=== PATIENT | female | born 1955 | race African-American/Black ===

== ENCOUNTER 2018-12-02 09:32 | Observation (INO) ==
[2018-12-02 10:54] LABS: Basophils % 0.3 % (0.0-0.8); Eosinophils % 0.3 % (0.00-10.9); Hematocrit 40.2 VOL% (35.7-47.0); Hemoglobin 12.7 GM/DL (12.0-16.0); Immature Granulocytes % 1.9 %; Immature Granulocytes Absolute 0.07 #; Lymphocytes # 0.6 10*3/uL (1.4-4.0); Lymphocytes % 16.4 % (21.3-54.2); Mean Corpuscular HGB Conc 31.6 GM/DL (32-36); Mean Platelet Volume 10.6 FL (9.6-12.0); Monocytes % 16.1 % (1.7-12.7); Platelet Count 152 T/CUMM (130-400); Red Blood Count 4.23 MC/CUMM (3.8-5.5); Red Cell Distribution Width 11.6 % (9.3-17.3); White Blood Count 3.7 T/CUMM (4-12)
[2018-12-02 11:02] LABS: Apearance,Urine CLEAR (Clear); Bilirubin,Urine Negative (Negative); Blood, Urine Negative (Negative); Glucose,Urine (UA) Negative (Negative); Hyaline Casts,Urine 7 /LPF (0-3); Ketones,Urine Negative (Negative); Mucus,Urine Occasional /LPF (Occasional); Nitrite,Urine Negative (Negative); Protein,Urine 30 MG/DL; RBC,Urine 1 /HPF (0-4); Urine Color Amber (Yellow); Urine Specific Gravity 1.019 (1.001-1.035); Urine Urobilinogen < 2.0 EU/DL (0.2-1.0); WBC,Urine <1 /HPF (0-6)
[2018-12-02 11:04] LABS: PT Patient Result 11.2 SECS; Partial Thromboplastin Time 30.8 SECS (0-40)
[2018-12-02 11:12] LABS: Alanine Aminotransferase 18 U/L (13-56); Albumin 3.2 G/DL (3.4-5.0); Alkaline Phosphatase 95 U/L (45-117); Aspartate Amino Transferase 40 U/L (0-37); Blood Urea Nitrogen 21 MG/DL (7-18); Calcium 10.2 MG/DL (8.5-10.1); Glucose 112 MG/DL (74-106); Osmolality,Calculated 276.8 MOS/KG (273-304); Total Protein 6.8 G/DL (6.4-8.3)
[2018-12-02 11:17] LABS: Lymphocytes 19 % (20-55); Myelocytes 1 %; Segmented Neutrophils 64 % (50-85); Total Cells Counted 100
[2018-12-02 11:18] LABS: Atypical Lymphocytes Few; Ovalocytes Slight; Tear Drop Cells Slight
[2018-12-02 11:19] LABS: Microcytosis Slight
[2018-12-02 11:21] LABS: Platelet Estimate Adequate
[2018-12-02 11:36] LABS: Barbiturates Screen,Urine Negative (Negative); Benzodiazepines Screen,Urine Negative (Negative); Cannabinoid Screen,Urine Negative (Negative); Opiate Screen,Urine Negative (Negative); Phencyclidine Screen,Urine Negative (Negative)
[2018-12-02] MEDS ORDERED: DEXTROSE 10% 250 ML BAG IV PRN (12:19)
[2018-12-02] MEDS ORDERED: ONDANSETRON 4 MG/2 ML VIAL IV PRN (12:19)
[2018-12-02] MEDS ORDERED: GLUCAGON 1 MG VIAL IM PRN (12:19)
[2018-12-02] MEDS: SODIUM CHLORIDE 0.9% 1,000 ML IV SCH ×2 (13:10→23:14)
[2018-12-02] MEDS: INSULIN LISPRO 100 UNIT/ML SUBCUT SCH ×2 (16:47→20:16)
[2018-12-02] MEDS: TACROLIMUS 0.5 MG CAPSULE PO SCH (20:16)
[2018-12-02] MEDS: METOPROLOL TARTRATE 100 MG TABLET PO SCH (20:16)
[2018-12-02] MEDS ORDERED: ATORVASTATIN 10 MG TABLET PO SCH (21:00)
[2018-12-02] MEDS ORDERED: ENOXAPARIN 30 MG/0.3 ML SYRINGE SUBCUT SCH (21:00)
[2018-12-02] MEDS ORDERED: clonazePAM 0.5 MG TABLET PO SCH (21:00)
[2018-12-03 04:50] LABS: Eosinophils % 0.4 % (0.00-10.9); Hematocrit 33.2 VOL% (35.7-47.0); Hemoglobin 10.2 GM/DL (12.0-16.0); Immature Granulocytes % 2.2 %; Immature Granulocytes Absolute 0.05 #; Lymphocytes # 0.5 10*3/uL (1.4-4.0); Mean Corpuscular HGB Conc 30.7 GM/DL (32-36); Mean Corpuscular Volume 95.4 FL (87-102); Mean Platelet Volume 10.1 FL (9.6-12.0); Neutrophils % 55.4 % (38.7-73.9); Platelet Count 127 T/CUMM (130-400); Red Blood Count 3.48 MC/CUMM (3.8-5.5); Red Cell Distribution Width 11.6 % (9.3-17.3); White Blood Count 2.3 T/CUMM (4-12)
[2018-12-03 05:18] LABS: Albumin 2.4 G/DL (3.4-5.0); Calcium 9.3 MG/DL (8.5-10.1); Osmolality,Calculated 281.3 MOS/KG (273-304); Thyroid Stimulating Hormone 2.44 uIU/ml (0.358-3.74); Total Protein 5.5 G/DL (6.4-8.3)
[2018-12-03 06:42] LABS: Lymphocytes 24 % (20-55); Segmented Neutrophils 58 % (50-85); Total Cells Counted 100
[2018-12-03 06:43] LABS: Hypochromasia 1+; Platelet Estimate Normal; Reactive Lymphocytes 1+
[2018-12-03 06:44] LABS: Ovalocytes 1+
[2018-12-03] MEDS: INSULIN LISPRO 100 UNIT/ML SUBCUT SCH ×2 (08:58→12:36)
[2018-12-03] MEDS ORDERED: CHOLECALCIFEROL 1,000 UNIT TABLET PO SCH (09:00)
[2018-12-03] MEDS ORDERED: LOSARTAN 50 MG TABLET PO SCH (09:00)
[2018-12-03] MEDS ORDERED: PANTOPRAZOLE 40 MG TABLET PO SCH (09:00)
[2018-12-03] MEDS ORDERED: predniSONE 20 MG TABLET PO SCH (09:00)
[2018-12-03] MEDS ORDERED: MYCOPHENOLATE MOFETIL 250 MG CAPSULE PO SCH (09:00)
[2018-12-03] MEDS ORDERED: MAGNESIUM OXIDE 400 MG TABLET PO SCH (09:00)
[2018-12-03] MEDS: SODIUM CHLORIDE 0.9% 1,000 ML IV SCH (09:10)
[2018-12-03] MEDS: TACROLIMUS 0.5 MG CAPSULE PO SCH (09:10)
[2018-12-03] MEDS: METOPROLOL TARTRATE 100 MG TABLET PO SCH (09:10)
[2018-12-03 13:30] VITALS: BP 139/74
== END 2018-12-03 12:42 | disposition home or self-care (01) ==
LOC: N.ED 09:32 → N.EDINP 09:32 → SUATTDRO 12:19 → N.4E 12:42
PROVIDERS: ADMIT Internal Medicine Nephrology; ATTEND Hospitalist

== ENCOUNTER 2020-04-18 21:20 | Inpatient (IN) ==
[2020-04-18] MEDS ORDERED: ACETAMINOPHEN 500 MG TABLET PO STA ×2 (22:20→22:44)
[2020-04-18] MEDS ORDERED: SODIUM CHLORIDE 0.9% 500 ML IV STA (22:20)
[2020-04-18] MEDS ORDERED: cefTRIAXone 1,000 MG in SODIUM CHLORIDE 0.9% 100 ML IV STA (22:20)
[2020-04-18] MEDS ORDERED: cefTRIAXone 1,000 MG VIAL ONE (22:27)
[2020-04-18 22:28] LABS: Basophils % 0.1 % (0.0-0.8); Eosinophils # 0.6 10*3/uL (0.0-0.87); Eosinophils % 6.1 % (0.00-10.9); Hematocrit 42.8 VOL% (35.7-47.0); Hemoglobin 14.2 GM/DL (12.0-16.0); Immature Granulocytes % 2.2 %; Lymphocytes # 0.4 10*3/uL (1.4-4.0); Lymphocytes % 4.7 % (21.3-54.2); Mean Corpuscular HGB Conc 33.2 GM/DL (32-36); Mean Corpuscular Volume 92.2 FL (87-102); Mean Platelet Volume 10.9 FL (9.6-12.0); Neutrophils % 60.9 % (38.7-73.9); Platelet Count 106 T/CUMM (130-400); Red Blood Count 4.64 MC/CUMM (3.8-5.5); Red Cell Distribution Width 11.6 % (9.3-17.3); White Blood Count 9.2 T/CUMM (4-12)
[2020-04-18 22:41] LABS: Albumin 2.9 G/DL (3.4-5.0); Bilirubin,Total 1.4 MG/DL (0.2-1.0); Calcium 8.9 MG/DL (8.5-10.1); Osmolality,Calculated 270.5 MOS/KG (273-304); Total Protein 5.9 G/DL (6.4-8.3)
[2020-04-18 22:54] LABS: Lymphocytes 5 % (20-55); Platelet Estimate Adequate; Segmented Neutrophils 67 % (50-85); Total Cells Counted 100
[2020-04-18] MEDS ORDERED: MAGNESIUM SULF RIDER 2 GM in PREMIX 1 EACH IV STA (23:10)
[2020-04-18 23:55] LABS: Bilirubin,Urine Negative (Negative); Blood, Urine Small mg/dL (Negative); Glucose,Urine (UA) Negative (Negative); Hyaline Casts,Urine 1 /LPF (0-3); Ketones,Urine Negative (Negative); Nitrite,Urine Negative (Negative); Protein,Urine 100 MG/DL; RBC,Urine 7 /HPF (0-4); Squamous Epithelial Cell,Urine Few /HPF (0-10); Urine Appearance Slightly Hazy (Clear); Urine Color Yellow (Yellow); Urine Specific Gravity 1.012 (1.001-1.035); Urine Urobilinogen < 2.0 EU/DL (0.2-1.0); WBC,Urine 75 /HPF (0-6)
[2020-04-18] MEDS ORDERED: IBUPROFEN 400 MG TABLET ONE (23:57)
[2020-04-18] MEDS ORDERED: IBUPROFEN 400 MG TABLET PO STA (23:58)
[2020-04-19] MEDS ORDERED: cefTRIAXone 1,000 MG in SODIUM CHLORIDE 0.9% 100 ML IV STA (00:13)
[2020-04-19] MEDS ORDERED: cefTRIAXone 1,000 MG VIAL ONE (00:22)
[2020-04-19] MEDS ORDERED: MAGNESIUM SULF RIDER 4 GM in PREMIX 1 EACH IV PRN (01:41)
[2020-04-19] MEDS ORDERED: MAGNESIUM SULF RIDER 2 GM in PREMIX 1 EACH IV PRN (01:41)
[2020-04-19] MEDS ORDERED: DEXTROSE 50% 25 GM/50 ML VIAL IV PRN (01:42)
[2020-04-19] MEDS ORDERED: GLUCAGON 1 MG VIAL IM PRN (01:42)
[2020-04-19] MEDS ORDERED: ONDANSETRON 4 MG/2 ML VIAL IV PRN (01:42)
[2020-04-19] MEDS: SODIUM CHLORIDE 0.9% 1,000 ML IV SCH ×3 (02:47→21:10)
[2020-04-19 03:50] LABS: Basophils % 0.1 % (0.0-0.8); Hematocrit 36.3 VOL% (35.7-47.0); Hemoglobin 11.8 GM/DL (12.0-16.0); Immature Granulocytes % 1.1 %; Immature Granulocytes Absolute 0.09 #; Lymphocytes # 0.3 10*3/uL (1.4-4.0); Lymphocytes % 3.2 % (21.3-54.2); Mean Corpuscular HGB Conc 32.5 GM/DL (32-36); Mean Corpuscular Volume 93.3 FL (87-102); Mean Platelet Volume 10.3 FL (9.6-12.0); Monocytes % 21.8 % (1.7-12.7); Neutrophils % 73.8 % (38.7-73.9); Platelet Count 89 T/CUMM (130-400); Red Blood Count 3.89 MC/CUMM (3.8-5.5); Red Cell Distribution Width 11.5 % (9.3-17.3); White Blood Count 8.6 T/CUMM (4-12)
[2020-04-19 04:23] LABS: Albumin 2.3 G/DL (3.4-5.0); Bilirubin,Total 0.8 MG/DL (0.2-1.0); Calcium 8.3 MG/DL (8.5-10.1); Osmolality,Calculated 270.2 MOS/KG (273-304); Total Protein 5.3 G/DL (6.4-8.3)
[2020-04-19 04:53] LABS: Band Neutrophils 1 % (0-10); Lymphocytes 4 % (20-55); Ovalocytes Slight; Platelet Estimate Decreased; Segmented Neutrophils 83 % (50-85); Total Cells Counted 100
[2020-04-19] MEDS: ENOXAPARIN 40 MG/0.4 ML SYRINGE SUBCUT SCH (08:55)
[2020-04-19] MEDS: INSULIN LISPRO 100 UNIT/ML SUBCUT SCH ×4 (08:56→21:09)
[2020-04-19] MEDS: ACETAMINOPHEN 325 MG TABLET PO PRN ×3 (09:40→19:45)
[2020-04-19] MEDS: POTASSIUM CHLORIDE 20 MEQ TABLET PO PRN ×3 (13:17→17:12)
[2020-04-19] MEDS: predniSONE 10 MG TABLET PO SCH (15:50)
[2020-04-19] MEDS: MYCOPHENOLATE MOFETIL 250 MG CAPSULE PO SCH ×2 (15:50→21:10)
[2020-04-19] MEDS ORDERED: IBUPROFEN 400 MG TABLET PO PRN (16:43)
[2020-04-19] MEDS: cefTRIAXone 2,000 MG in SYRINGE 1 EACH IV SCH (21:09)
[2020-04-20 05:56] LABS: Basophils % 0.2 % (0.0-0.8); Hematocrit 36.1 VOL% (35.7-47.0); Hemoglobin 11.9 GM/DL (12.0-16.0); Immature Granulocytes % 7.2 %; Lymphocytes # 0.3 10*3/uL (1.4-4.0); Lymphocytes % 3.1 % (21.3-54.2); Mean Corpuscular Volume 93.3 FL (87-102); Mean Platelet Volume 11.4 FL (9.6-12.0); Monocytes % 13.5 % (1.7-12.7); Red Blood Count 3.87 MC/CUMM (3.8-5.5); Red Cell Distribution Width 11.8 % (9.3-17.3); White Blood Count 8.3 T/CUMM (4-12)
[2020-04-20 05:58] LABS: Platelet Count 67 T/CUMM (130-400)
[2020-04-20 06:16] LABS: Calcium 7.8 MG/DL (8.5-10.1)
[2020-04-20 06:22] LABS: Lymphocytes 1 % (20-55); Metamyelocytes 2 %; Platelet Estimate Decreased; Segmented Neutrophils 88 % (50-85); Total Cells Counted 100
[2020-04-20 06:26] LABS: Albumin 1.4 G/DL (3.4-5.0); Bilirubin,Total 0.5 MG/DL (0.2-1.0); Calcium 7.2 MG/DL (8.5-10.1); Osmolality,Calculated 276.1 MOS/KG (273-304); Total Protein 4.4 G/DL (6.4-8.3)
[2020-04-20] MEDS: INSULIN LISPRO 100 UNIT/ML SUBCUT SCH ×4 (09:23→21:18)
[2020-04-20] MEDS: MYCOPHENOLATE MOFETIL 250 MG CAPSULE PO SCH ×2 (09:24→21:18)
[2020-04-20] MEDS: ENOXAPARIN 40 MG/0.4 ML SYRINGE SUBCUT SCH (09:24)
[2020-04-20] MEDS: predniSONE 10 MG TABLET PO SCH (09:24)
[2020-04-20] MEDS: SODIUM CHLORIDE 0.9% 1,000 ML IV SCH ×2 (09:24→17:02)
[2020-04-20] MEDS: ACETAMINOPHEN 325 MG TABLET PO PRN (09:25)
[2020-04-20] MEDS: NYSTATIN 500,000 UNIT/5 ML UDCUP SWISH/SWAL SCH ×2 (16:47→21:17)
[2020-04-20] MEDS: cefTRIAXone 2,000 MG in SYRINGE 1 EACH IV SCH (21:16)
[2020-04-20] MEDS: clonazePAM 0.5 MG TABLET PO SCH (21:17)
[2020-04-20] MEDS: TACROLIMUS 0.5 MG CAPSULE PO SCH (21:19)
[2020-04-21] MEDS: ACETAMINOPHEN 325 MG TABLET PO PRN ×2 (00:15→09:47)
[2020-04-21 09:33] LABS: Calcium 8.6 MG/DL (8.5-10.1); Osmolality,Calculated 281.5 MOS/KG (273-304)
[2020-04-21 10:29] LABS: Hematocrit 32.3 VOL% (35.7-47.0); Hemoglobin 10.6 GM/DL (12.0-16.0); Immature Granulocytes % 3.7 %; Immature Granulocytes Absolute 0.13 #; Lymphocytes # 0.4 10*3/uL (1.4-4.0); Lymphocytes % 10.5 % (21.3-54.2); Mean Corpuscular HGB Conc 32.8 GM/DL (32-36); Mean Corpuscular Volume 92.8 FL (87-102); Mean Platelet Volume 11.1 FL (9.6-12.0); Monocytes % 17.8 % (1.7-12.7); Red Blood Count 3.48 MC/CUMM (3.8-5.5); Red Cell Distribution Width 12.3 % (9.3-17.3); White Blood Count 3.5 T/CUMM (4-12)
[2020-04-21 10:32] LABS: Platelet Count 79 T/CUMM (130-400)
[2020-04-21] MEDS: NYSTATIN 500,000 UNIT/5 ML UDCUP SWISH/SWAL SCH ×4 (10:36→21:44)
[2020-04-21] MEDS: CHOLECALCIFEROL 1,000 UNIT TABLET PO SCH (10:37)
[2020-04-21] MEDS: TACROLIMUS 0.5 MG CAPSULE PO SCH ×2 (10:37→21:36)
[2020-04-21] MEDS: CETIRIZINE 10 MG TABLET PO SCH (10:38)
[2020-04-21] MEDS: RIVAROXABAN 10 MG TABLET PO SCH (10:38)
[2020-04-21] MEDS: ASPIRIN EC 81 MG TABLET PO SCH (10:38)
[2020-04-21] MEDS: MYCOPHENOLATE MOFETIL 250 MG CAPSULE PO SCH ×2 (10:39→21:35)
[2020-04-21] MEDS: INSULIN LISPRO 100 UNIT/ML SUBCUT SCH ×4 (10:39→21:36)
[2020-04-21] MEDS: predniSONE 10 MG TABLET PO SCH (10:39)
[2020-04-21 10:49] LABS: Hypochromasia 1+; Lymphocytes 8 % (20-55); Microcytosis Slight; Nucleated Red Blood Cells 1 (0-5); Ovalocytes Slight; Platelet Estimate Decreased; Segmented Neutrophils 82 % (50-85); Total Cells Counted 100
[2020-04-21 10:50] LABS: Burr Cells Slight
[2020-04-21 14:56] LABS: Ferritin 3251.5 ng/ml (8-252)
[2020-04-21 15:00] LABS: INR 1.2; PT Patient Result 13.1 SECS (9.8-11.9)
[2020-04-21] MEDS: METOPROLOL TARTRATE 100 MG TABLET PO SCH ×2 (15:09→21:35)
[2020-04-21] MEDS: SODIUM CHLORIDE 0.9% 1,000 ML IV SCH (15:10)
[2020-04-21 15:48] LABS: HIV Antigen/Antibody Result Nonreactive (Nonreactive)
[2020-04-21] MEDS: clonazePAM 0.5 MG TABLET PO SCH (21:35)
[2020-04-21] MEDS: LOSARTAN 50 MG TABLET PO SCH (21:36)
[2020-04-21] MEDS: cefTRIAXone 2,000 MG in SYRINGE 1 EACH IV SCH (21:43)
[2020-04-22] MEDS: ACETAMINOPHEN 325 MG TABLET PO PRN ×3 (03:41→23:36)
[2020-04-22 04:16] LABS: Eosinophils # 0.1 10*3/uL (0.0-0.87); Eosinophils % 4.6 % (0.00-10.9); Hematocrit 23.8 VOL% (35.7-47.0); Immature Granulocytes % 3.3 %; Immature Granulocytes Absolute 0.08 #; Lymphocytes # 0.4 10*3/uL (1.4-4.0); Lymphocytes % 15.4 % (21.3-54.2); Mean Corpuscular HGB Conc 30.3 GM/DL (32-36); Mean Corpuscular Volume 99.2 FL (87-102); Mean Platelet Volume 11.1 FL (9.6-12.0); Monocytes % 13.3 % (1.7-12.7); Neutrophils % 63.4 % (38.7-73.9); Red Cell Distribution Width 12.3 % (9.3-17.3)
[2020-04-22 04:29] LABS: Hemoglobin 7.2 GM/DL (12.0-16.0); Platelet Count 53 T/CUMM (130-400); White Blood Count 2.4 T/CUMM (4-12)
[2020-04-22 04:32] LABS: Calcium 6.1 MG/DL (8.5-10.1); Osmolality,Calculated 293.4 MOS/KG (273-304)
[2020-04-22 04:40] LABS: Band Neutrophils 1 % (0-10); Lymphocytes 17 % (20-55); Segmented Neutrophils 72 % (50-85); Total Cells Counted 100
[2020-04-22 04:41] LABS: Burr Cells Few; Hypochromasia 1+; Microcytosis Slight
[2020-04-22 04:42] LABS: Ovalocytes Slight; Platelet Estimate Decreased
[2020-04-22] MEDS: SODIUM CHLORIDE 0.9% 1,000 ML IV SCH (05:19)
[2020-04-22 07:45] LABS: Hematocrit 26.8 VOL% (35.7-47.0); Hemoglobin 8.6 GM/DL (12.0-16.0); Immature Granulocytes % 1.2 %; Immature Granulocytes Absolute 0.02 #; Lymphocytes # 0.3 10*3/uL (1.4-4.0); Mean Corpuscular HGB Conc 32.1 GM/DL (32-36); Mean Corpuscular Volume 94.7 FL (87-102); Mean Platelet Volume 11.1 FL (9.6-12.0); Monocytes % 14.2 % (1.7-12.7); Neutrophils % 68.6 % (38.7-73.9); Platelet Count 68 T/CUMM (130-400); Red Blood Count 2.83 MC/CUMM (3.8-5.5); Red Cell Distribution Width 12.4 % (9.3-17.3); White Blood Count 1.6 T/CUMM (4-12)
[2020-04-22] MEDS ORDERED: MAGNESIUM SULF RIDER 4 GM in PREMIX 1 EACH IV ONE (07:53)
[2020-04-22] MEDS: NYSTATIN 500,000 UNIT/5 ML UDCUP SWISH/SWAL SCH ×4 (08:25→22:00)
[2020-04-22] MEDS: TACROLIMUS 0.5 MG CAPSULE PO SCH ×2 (08:25→21:59)
[2020-04-22] MEDS: CHOLECALCIFEROL 1,000 UNIT TABLET PO SCH (08:26)
[2020-04-22] MEDS: METOPROLOL TARTRATE 100 MG TABLET PO SCH ×2 (08:26→21:59)
[2020-04-22] MEDS: MYCOPHENOLATE MOFETIL 250 MG CAPSULE PO SCH ×2 (08:26→21:59)
[2020-04-22] MEDS: amLODIPine 10 MG TABLET PO SCH (08:26)
[2020-04-22] MEDS: RIVAROXABAN 10 MG TABLET PO SCH (08:26)
[2020-04-22] MEDS: CETIRIZINE 10 MG TABLET PO SCH (08:26)
[2020-04-22] MEDS: ASPIRIN EC 81 MG TABLET PO SCH (08:26)
[2020-04-22] MEDS: predniSONE 10 MG TABLET PO SCH (08:27)
[2020-04-22] MEDS: INSULIN LISPRO 100 UNIT/ML SUBCUT SCH ×4 (08:27→21:58)
[2020-04-22] MEDS: SODIUM BICARB IV SCH ×2 (11:50→23:27)
[2020-04-22] MEDS: POTASSIUM CHLORIDE IV SCH ×2 (11:50→23:27)
[2020-04-22] MEDS: [UNRECOGNIZED DRUG - OTHER] IV SCH ×2 (11:50→23:27)
[2020-04-22] MEDS ORDERED: INSULIN GLARGINE 100 UNIT/ML SUBCUT SCH (21:00)
[2020-04-22] MEDS: cefTRIAXone 2,000 MG in SYRINGE 1 EACH IV SCH (21:57)
[2020-04-22] MEDS: LOSARTAN 50 MG TABLET PO SCH (21:59)
[2020-04-22] MEDS: clonazePAM 0.5 MG TABLET PO SCH (21:59)
[2020-04-23 04:23] LABS: Hematocrit 28.6 VOL% (35.7-47.0); Hemoglobin 9.3 GM/DL (12.0-16.0); Immature Granulocytes % 0.5 %; Immature Granulocytes Absolute 0.01 #; Lymphocytes # 0.3 10*3/uL (1.4-4.0); Lymphocytes % 14.4 % (21.3-54.2); Mean Corpuscular HGB Conc 32.5 GM/DL (32-36); Mean Corpuscular Volume 93.2 FL (87-102); Mean Platelet Volume 11.4 FL (9.6-12.0); Monocytes % 11.8 % (1.7-12.7); Neutrophils % 73.3 % (38.7-73.9); Platelet Count 67 T/CUMM (130-400); Red Blood Count 3.07 MC/CUMM (3.8-5.5); Red Cell Distribution Width 12.3 % (9.3-17.3); White Blood Count 1.9 T/CUMM (4-12)
[2020-04-23 04:53] LABS: Burr Cells Slight; Hypochromasia 1+; Lymphocytes 21 % (20-55); Microcytosis 1+; Ovalocytes Slight; Platelet Estimate Decreased; Segmented Neutrophils 71 % (50-85); Total Cells Counted 100
[2020-04-23 05:13] LABS: Folate 5.5 NG/ML (5.4-24.0)
[2020-04-23 05:25] LABS: Calcium 8.5 MG/DL (8.5-10.1); Osmolality,Calculated 276.5 MOS/KG (273-304)
[2020-04-23 06:08] LABS: Ferritin 2601.8 ng/ml (8-252)
[2020-04-23] MEDS: SODIUM CHLORIDE 0.9% 1,000 ML IV SCH (06:46)
[2020-04-23] MEDS: INSULIN LISPRO 100 UNIT/ML SUBCUT SCH ×4 (08:00→20:13)
[2020-04-23] MEDS: POTASSIUM CHLORIDE IV SCH (09:44)
[2020-04-23] MEDS: [UNRECOGNIZED DRUG - OTHER] IV SCH (09:44)
[2020-04-23] MEDS: SODIUM BICARB IV SCH (09:44)
[2020-04-23] MEDS: TACROLIMUS 0.5 MG CAPSULE PO SCH ×2 (09:47→20:12)
[2020-04-23] MEDS: amLODIPine 10 MG TABLET PO SCH (09:47)
[2020-04-23] MEDS: DOCUSATE SODIUM 100 MG CAPSULE PO PRN (09:47)
[2020-04-23] MEDS: ASPIRIN EC 81 MG TABLET PO SCH (09:48)
[2020-04-23] MEDS: predniSONE 10 MG TABLET PO SCH (09:48)
[2020-04-23] MEDS: CETIRIZINE 10 MG TABLET PO SCH (09:48)
[2020-04-23] MEDS: RIVAROXABAN 10 MG TABLET PO SCH (09:48)
[2020-04-23] MEDS: METOPROLOL TARTRATE 100 MG TABLET PO SCH ×2 (09:48→20:13)
[2020-04-23] MEDS: MYCOPHENOLATE MOFETIL 250 MG CAPSULE PO SCH ×2 (09:48→20:12)
[2020-04-23] MEDS: CHOLECALCIFEROL 1,000 UNIT TABLET PO SCH (09:48)
[2020-04-23] MEDS: NYSTATIN 500,000 UNIT/5 ML UDCUP SWISH/SWAL SCH ×4 (09:50→20:11)
[2020-04-23] MEDS: SODIUM BICARB INJ 50 MEQ in SODIUM CHLORIDE 0.45% 1,000 ML IV SCH (20:11)
[2020-04-23] MEDS: cefTRIAXone 2,000 MG in SYRINGE 1 EACH IV SCH (20:12)
[2020-04-23] MEDS: clonazePAM 0.5 MG TABLET PO SCH ×2 (20:12→20:23)
[2020-04-23] MEDS: LOSARTAN 50 MG TABLET PO SCH (20:12)
[2020-04-23] MEDS ORDERED: INSULIN GLARGINE 100 UNIT/ML SUBCUT SCH (21:00)
[2020-04-24 06:45] LABS: Eosinophils # 0.1 10*3/uL (0.0-0.87); Eosinophils % 4.7 % (0.00-10.9); Hematocrit 30.1 VOL% (35.7-47.0); Hemoglobin 9.8 GM/DL (12.0-16.0); Lymphocytes # 0.3 10*3/uL (1.4-4.0); Lymphocytes % 21.3 % (21.3-54.2); Mean Corpuscular HGB Conc 32.6 GM/DL (32-36); Mean Corpuscular Volume 92.3 FL (87-102); Mean Platelet Volume 10.5 FL (9.6-12.0); Monocytes % 11.3 % (1.7-12.7); Neutrophils % 62.7 % (38.7-73.9); Platelet Count 75 T/CUMM (130-400); Red Blood Count 3.26 MC/CUMM (3.8-5.5); Red Cell Distribution Width 12.2 % (9.3-17.3); White Blood Count 1.5 T/CUMM (4-12)
[2020-04-24 06:46] LABS: Calcium 8.7 MG/DL (8.5-10.1); Osmolality,Calculated 277.5 MOS/KG (273-304)
[2020-04-24] MEDS ORDERED: MAGNESIUM CHLORIDE 64 MG TABLET PO ONE (07:43)
[2020-04-24 07:46] LABS: Anisocytosis 1+; Band Neutrophils 1 % (0-10); Lymphocytes 21 % (20-55); Platelet Estimate Decreased; Segmented Neutrophils 61 % (50-85); Total Cells Counted 100
[2020-04-24 08:13] VITALS: BP 158/76
[2020-04-24] MEDS: TACROLIMUS 0.5 MG CAPSULE PO SCH (08:49)
[2020-04-24] MEDS: CETIRIZINE 10 MG TABLET PO SCH (08:49)
[2020-04-24] MEDS: SODIUM BICARB INJ 50 MEQ in SODIUM CHLORIDE 0.45% 1,000 ML IV SCH (08:49)
[2020-04-24] MEDS: ASPIRIN EC 81 MG TABLET PO SCH (08:50)
[2020-04-24] MEDS: NYSTATIN 500,000 UNIT/5 ML UDCUP SWISH/SWAL SCH (08:50)
[2020-04-24] MEDS: DOCUSATE SODIUM 100 MG CAPSULE PO PRN (08:50)
[2020-04-24] MEDS: METOPROLOL TARTRATE 100 MG TABLET PO SCH (08:50)
[2020-04-24] MEDS: RIVAROXABAN 10 MG TABLET PO SCH (08:50)
[2020-04-24] MEDS: amLODIPine 10 MG TABLET PO SCH (08:50)
[2020-04-24] MEDS: predniSONE 10 MG TABLET PO SCH (08:50)
[2020-04-24] MEDS: MYCOPHENOLATE MOFETIL 250 MG CAPSULE PO SCH (08:50)
[2020-04-24] MEDS: CHOLECALCIFEROL 1,000 UNIT TABLET PO SCH (08:50)
[2020-04-24] MEDS: INSULIN LISPRO 100 UNIT/ML SUBCUT SCH (08:51)
[2020-04-24] MEDS ORDERED: CEFUROXIME 500 MG TABLET PO SCH (21:00)
== END 2020-04-24 11:54 | disposition home or self-care (01) | DRG 720 ==
LOC: N.ED 21:20 → N.EDINP 21:20 → N.5E 04-19 02:35
PROVIDERS: ADMIT Internal Medicine; ATTEND Internal Medicine

== ENCOUNTER 2021-07-27 12:06 | Inpatient (IN) ==
[2021-07-27] MEDS ORDERED: DEXTROSE 50% 25 GM/50 ML SYRINGE IV ONE ×2 (13:22→13:37)
[2021-07-27] MEDS ORDERED: EPINEPHrine 1 MG/10 ML SYRINGE IV ONE (13:34)
[2021-07-27] MEDS ORDERED: SODIUM BICARBONATE 50 MEQ/50 ML SYRINGE IV ONE (13:36)
[2021-07-27] MEDS ORDERED: SODIUM CHLORIDE 0.9% 500 ML BAG IV ONE (13:37)
[2021-07-27] MEDS ORDERED: MIDAZOLAM 10 MG/2 ML VIAL ONE (13:38)
[2021-07-27] MEDS ORDERED: ROCURONIUM 100 MG/10 ML VIAL IV ONE (13:43)
[2021-07-27] MEDS ORDERED: VANCOMYCIN INJ 1,000 MG in SODIUM CHLORIDE 0.9% 250 ML IV STA (13:58)
[2021-07-27] MEDS ORDERED: PIPERACILLIN/TAZOBACTAM 3,375 MG in SODIUM CHLORIDE 0.9% 100 ML IV STA (13:58)
[2021-07-27 14:13] LABS: Basophils % 0.1 % (0.0-0.8); Hemoglobin 7.3 GM/DL (12.0-16.0); Immature Granulocytes % 6.9 %; Immature Granulocytes Absolute 1.02 #; Lymphocytes # 0.3 10*3/uL (1.4-4.0); Lymphocytes % 1.9 % (21.3-54.2); Mean Corpuscular HGB Conc 30.4 GM/DL (32-36); Mean Corpuscular Volume 101.3 FL (87-102); Mean Platelet Volume 10.8 FL (9.6-12.0); Monocytes % 15.1 % (1.7-12.7); Platelet Count 95 T/CUMM (130-400); Red Blood Count 2.37 MC/CUMM (3.8-5.5); White Blood Count 14.8 T/CUMM (4-12)
[2021-07-27 14:21] LABS: INR 1.2; PT Patient Result 13.4 SECS (10.5-12.0); Partial Thromboplastin Time 36.1 SECS (23.8-32.1)
[2021-07-27 14:26] LABS: ABG Base Excess -8.5 MMOL/L (-2.5-2.5); ABG HCO3 17.5 MMOL/L (20-26); ABG Oxygen Saturation 99.2 % (95-100); ABG PCO2 38.6 MM HG (35-48); ABG PH 7.272 (7.35-7.45); ABG TCO2 16.8 MMOL/L (23-27); Pt O2 Delivery Device Ventilator
[2021-07-27] MEDS ORDERED: NOREPINEPHRINE 4 MG/4 ML VIAL IV ONE ×2 (14:27→21:23)
[2021-07-27] MEDS ORDERED: SODIUM CHLORIDE 0.9% 1,000 ML IV STA (14:29)
[2021-07-27] MEDS: NOREPINEPHRINE 8 MG in SODIUM CHLORIDE 0.9% 242 ML IV PRN ×2 (14:33→21:45)
[2021-07-27] MEDS ORDERED: ALBUTEROL 2.5 MG/3 ML NEB RESP TX PRN (14:36)
[2021-07-27] MEDS ORDERED: HYDROCORTISONE 100 MG VIAL IV STA (14:38)
[2021-07-27] MEDS ORDERED: AZITHROMYCIN INJ 500 MG in SODIUM CHLORIDE 0.9% 250 ML IV ONE (14:38)
[2021-07-27] MEDS ORDERED: ONDANSETRON 4 MG/2 ML VIAL IV PRN (14:38)
[2021-07-27 14:42] LABS: Albumin 1.5 G/DL (3.4-5.0); Bilirubin,Total 0.7 MG/DL (0.20-1.00); Calcium 7.6 MG/DL (8.5-10.1); Osmolality,Calculated 292.5 MOS/KG (273-304); Potassium 2.7 MMOL/L (3.5-5.1); Total Protein 3.8 G/DL (6.4-8.2)
[2021-07-27 14:45] LABS: Band Neutrophils 13 % (0-10); Lymphocytes 1 % (20-55); Metamyelocytes 2 %; Segmented Neutrophils 73 % (50-85); Total Cells Counted 100
[2021-07-27] MEDS ORDERED: MIDAZOLAM 100 MG in SODIUM CHLORIDE 0.9% 80 ML IV PRN (14:45)
[2021-07-27] MEDS ORDERED: POTASSIUM BICARB EFFERVESCENT 20 MEQ TAB.EFF PO ONE (14:48)
[2021-07-27 14:49] LABS: Anisocytosis 1+; Atypical Lymphocytes Few; Hypochromia Slight; Macrocytosis 1+; Microcytosis Slight; Platelet Estimate Decreased; Schistocytes Slight; Tear Drop Cells Slight
[2021-07-27 14:50] LABS: Burr Cells Slight; Poikilocytosis Few; Toxic Granulation 1+
[2021-07-27 14:51] LABS: Dohle Bodies 1+; Elliptocytes Few
[2021-07-27] MEDS ORDERED: MORPHINE 4 MG/1 ML VIAL IV PRN (15:00)
[2021-07-27 15:01] LABS: Bilirubin,Urine Negative (Negative); Blood, Urine Small mg/dL (Negative); Glucose,Urine (UA) 50 mg/dL (Negative); Ketones,Urine Negative (Negative); Mucus,Urine Occasional /LPF (Occasional); Nitrite,Urine Negative (Negative); Protein,Urine 30 MG/DL; Squamous Epithelial Cell,Urine Occasional /HPF (0-10); Urine Appearance CLEAR (Clear); Urine Color Yellow (Yellow); Urine Specific Gravity 1.014 (1.001-1.035); Urine Urobilinogen < 2.0 EU/DL (<2.0)
[2021-07-27 15:32] LABS: Ferritin 1701.8 ng/mL (8-252)
[2021-07-27] MEDS ORDERED: cefTRIAXone 1,000 MG in SODIUM CHLORIDE 0.9% 100 ML IV SCH (16:00)
[2021-07-27] MEDS: DEXAMETHASONE 4 MG/1 ML VIAL IV SCH (16:19)
[2021-07-27] MEDS: FAMOTIDINE 20 MG/2 ML VIAL IV SCH (16:20)
[2021-07-27] MEDS: ZINC GLUCONATE 50 MG TABLET PO SCH (17:00)
[2021-07-27] MEDS: ASCORBIC ACID 500 MG TABLET PO SCH ×2 (17:00→22:00)
[2021-07-27] MEDS: POTASSIUM CHLORIDE RIDER 10 MEQ/100 ML PREMIX IV SCH ×4 (17:00→20:51)
[2021-07-27] MEDS: MIDAZOLAM 100 MG in SODIUM CHLORIDE 0.9% 80 ML IV PRN (17:20)
[2021-07-27] MEDS: ENOXAPARIN 30 MG/0.3 ML SYRINGE SUBCUT SCH (22:00)
[2021-07-28] MEDS: SODIUM CHLORIDE 0.9% 1,000 ML IV SCH ×3 (02:01→21:29)
[2021-07-28] MEDS: NOREPINEPHRINE 8 MG in SODIUM CHLORIDE 0.9% 242 ML IV PRN (04:08)
[2021-07-28 04:13] LABS: ABG Base Excess -8.7 MMOL/L (-2.5-2.5); ABG HCO3 14.5 MMOL/L (20-26); ABG Oxygen Saturation 98.4 % (95-100); ABG PCO2 22.9 MM HG (35-48); ABG PH 7.418 (7.35-7.45); ABG TCO2 15.2 MMOL/L (23-27)
[2021-07-28 04:22] LABS: Basophils # 0.1 10*3/uL (0.0-0.2); Basophils % 0.3 % (0.0-0.8); Hemoglobin 8.8 GM/DL (12.0-16.0); Immature Granulocytes % 12.5 %; Immature Granulocytes Absolute 3.86 #; Lymphocytes # 0.3 10*3/uL (1.4-4.0); Lymphocytes % 0.9 % (21.3-54.2); Mean Corpuscular HGB Conc 31.4 GM/DL (32-36); Mean Corpuscular Volume 98.9 FL (87-102); Mean Platelet Volume 11.1 FL (9.6-12.0); Monocytes % 9.1 % (1.7-12.7); Neutrophils % 77.2 % (38.7-73.9); Platelet Count 109 T/CUMM (130-400); Red Blood Count 2.83 MC/CUMM (3.8-5.5); Red Cell Distribution Width 13.2 % (9.3-17.3); White Blood Count 30.9 T/CUMM (4-12)
[2021-07-28 04:40] LABS: Albumin 1.8 G/DL (3.4-5.0); Bilirubin,Total 0.8 MG/DL (0.20-1.00); Calcium 7.5 MG/DL (8.5-10.1); Osmolality,Calculated 281.8 MOS/KG (273-304); Total Protein 4.6 G/DL (6.4-8.2)
[2021-07-28 04:47] LABS: Band Neutrophils 1 % (0-10); Lymphocytes 3 % (20-55); Platelet Estimate Decreased; Segmented Neutrophils 88 % (50-85); Total Cells Counted 100
[2021-07-28 04:48] LABS: Hypochromia 1+; Microcytosis 1+; Ovalocytes Slight
[2021-07-28 05:05] LABS: Ferritin 2221.4 ng/mL (8-252)
[2021-07-28] MEDS: DEXAMETHASONE 4 MG/1 ML VIAL IV SCH (09:30)
[2021-07-28] MEDS: ENOXAPARIN 30 MG/0.3 ML SYRINGE SUBCUT SCH ×2 (09:30→20:33)
[2021-07-28] MEDS: FAMOTIDINE 20 MG/2 ML VIAL IV SCH ×2 (09:35→20:32)
[2021-07-28] MEDS: CHOLECALCIFEROL 1,000 UNIT TABLET PO SCH (09:40)
[2021-07-28] MEDS: ASCORBIC ACID 500 MG TABLET PO SCH ×2 (09:40→20:32)
[2021-07-28] MEDS: ZINC GLUCONATE 50 MG TABLET PO SCH (09:40)
[2021-07-28] MEDS ORDERED: MAGNESIUM SULF RIDER 4 GM/100 ML PREMIX IV PRN (10:37)
[2021-07-28] MEDS ORDERED: SODIUM CHLORIDE 0.9% 1,000 ML IV ONE ×3 (12:06→15:49)
[2021-07-28] MEDS ORDERED: GLUCAGON 1 MG VIAL IM PRN (12:21)
[2021-07-28] MEDS ORDERED: DEXTROSE 10% 25 GM/250 ML BAG IV PRN (12:21)
[2021-07-28] MEDS: PIPERACILLIN/TAZOBACTAM 3,375 MG in SODIUM CHLORIDE 0.9% 100 ML IV SCH ×2 (13:02→20:32)
[2021-07-28] MEDS: fentaNYL INJ 1,250 MCG in SODIUM CHLORIDE 0.9% 225 ML IV PRN (16:00)
[2021-07-28] MEDS: AZITHROMYCIN INJ 500 MG in SODIUM CHLORIDE 0.9% 250 ML IV SCH (16:30)
[2021-07-28] MEDS: MIDAZOLAM 100 MG in SODIUM CHLORIDE 0.9% 80 ML IV PRN (18:49)
[2021-07-28] MEDS: INSULIN REGULAR 100 UNIT/ML SUBCUT SCH ×2 (19:01→23:35)
[2021-07-28 19:21] LABS: Bacteria,Urine Occasional /HPF (Few); Mucus,Urine Occasional /LPF (Occasional); RBC,Urine 12 /HPF (0-4); Squamous Epithelial Cell,Urine Occasional /HPF (0-10)
[2021-07-28 19:29] LABS: Urine Appearance Slightly Cloudy (Clear); Urine Color Yellow (Yellow)
[2021-07-28 19:30] LABS: Bilirubin,Urine Negative (Negative); Blood, Urine Moderate mg/dL (Negative); Glucose,Urine (UA) Negative (Negative); Ketones,Urine Negative (Negative); Nitrite,Urine Negative (Negative); Protein,Urine 100 MG/DL; Urine Specific Gravity 1.015 (1.001-1.035); Urine Urobilinogen 0.2 EU/DL (<2.0); Urine pH 5.5 (4.5-8.0)
[2021-07-28] MEDS: MYCOPHENOLATE MOFETIL 250 MG CAPSULE PO SCH (20:32)
[2021-07-29] MEDS: ACETAMINOPHEN 325 MG TABLET PO PRN ×2 (00:29→09:20)
[2021-07-29 01:03] LABS: ABG Base Excess -9.4 MMOL/L (-2.5-2.5); ABG HCO3 16.6 MMOL/L (20-26); ABG Oxygen Saturation 82.8 % (95-100); ABG PCO2 31.5 MM HG (35-48); ABG PH 7.313 (7.35-7.45); ABG PO2 58.2 MM HG (80-95); ABG TCO2 15.3 MMOL/L (23-27)
[2021-07-29] MEDS: fentaNYL INJ 1,250 MCG in SODIUM CHLORIDE 0.9% 225 ML IV PRN ×2 (01:30→09:00)
[2021-07-29 02:59] LABS: Basophils % 0.1 % (0.0-0.8); Hematocrit 20.9 VOL% (35.7-47.0); Immature Granulocytes % 23.9 %; Immature Granulocytes Absolute 3.59 #; Lymphocytes # 0.2 10*3/uL (1.4-4.0); Lymphocytes % 1.1 % (21.3-54.2); Mean Corpuscular HGB Conc 30.6 GM/DL (32-36); Mean Corpuscular Volume 100.5 FL (87-102); Mean Platelet Volume 11.5 FL (9.6-12.0); Monocytes % 5.5 % (1.7-12.7); Neutrophils % 69.4 % (38.7-73.9); Platelet Count 65 T/CUMM (130-400); Red Blood Count 2.08 MC/CUMM (3.8-5.5); Red Cell Distribution Width 13.3 % (9.3-17.3)
[2021-07-29 03:04] LABS: Hemoglobin 6.4 GM/DL (12.0-16.0)
[2021-07-29 03:14] LABS: Albumin 1.4 G/DL (3.4-5.0); Bilirubin,Total 0.6 MG/DL (0.20-1.00); Calcium 6.8 MG/DL (8.5-10.1); Potassium 4.8 MMOL/L (3.5-5.1)
[2021-07-29 03:39] LABS: Ferritin 1661.9 ng/mL (8-252)
[2021-07-29] MEDS: PIPERACILLIN/TAZOBACTAM 3,375 MG in SODIUM CHLORIDE 0.9% 100 ML IV SCH ×2 (03:43→18:00)
[2021-07-29 03:44] LABS: Folate 4.29 NG/ML (5.38-24.0)
[2021-07-29 03:48] LABS: ABG Base Excess -10.4 MMOL/L (-2.5-2.5); ABG HCO3 15.6 MMOL/L (20-26); ABG Oxygen Saturation 91.3 % (95-100); ABG PCO2 34.9 MM HG (35-48); ABG PH 7.269 (7.35-7.45); ABG PO2 74.5 MM HG (80-95); ABG TCO2 16.7 MMOL/L (23-27)
[2021-07-29 03:55] LABS: Band Neutrophils 6 % (0-10); Lymphocytes 1 % (20-55); Segmented Neutrophils 90 % (50-85); Total Cells Counted 100
[2021-07-29 03:56] LABS: Burr Cells Slight; Hypochromia Slight; Microcytosis Slight; Ovalocytes Slight; Platelet Estimate Decreased
[2021-07-29] MEDS ORDERED: SODIUM CHLORIDE 0.9% 1,000 ML IV PRN ×2 (04:03→10:02)
[2021-07-29] MEDS: INSULIN REGULAR 100 UNIT/ML SUBCUT SCH ×4 (05:28→23:26)
[2021-07-29] MEDS: SODIUM CHLORIDE 0.9% 1,000 ML IV SCH ×2 (05:30→19:31)
[2021-07-29] MEDS ORDERED: FUROSEMIDE 40 MG/4 ML VIAL IV ONE (09:15)
[2021-07-29] MEDS: DEXAMETHASONE 4 MG/1 ML VIAL IV SCH (09:30)
[2021-07-29] MEDS: MYCOPHENOLATE MOFETIL 250 MG CAPSULE PO SCH ×2 (09:30→21:01)
[2021-07-29] MEDS: CHOLECALCIFEROL 1,000 UNIT TABLET PO SCH (09:34)
[2021-07-29] MEDS: ASCORBIC ACID 500 MG TABLET PO SCH ×2 (09:34→21:01)
[2021-07-29] MEDS: ENOXAPARIN 30 MG/0.3 ML SYRINGE SUBCUT SCH (09:34)
[2021-07-29] MEDS: FAMOTIDINE 20 MG/2 ML VIAL IV SCH ×2 (09:34→21:01)
[2021-07-29] MEDS: ZINC GLUCONATE 50 MG TABLET PO SCH (09:36)
[2021-07-29] MEDS: MAGNESIUM SULF RIDER 2 GM/50 ML PREMIX IV PRN ×2 (09:37→19:21)
[2021-07-29] MEDS: MIDAZOLAM 100 MG in SODIUM CHLORIDE 0.9% 80 ML IV PRN (14:00)
[2021-07-29] MEDS: AZITHROMYCIN INJ 500 MG in SODIUM CHLORIDE 0.9% 250 ML IV SCH (15:46)
[2021-07-29] MEDS: METOCLOPRAMIDE 10 MG/2 ML VIAL IV SCH ×2 (18:30→23:26)
[2021-07-29] MEDS: FOLIC ACID 1 MG TABLET PO SCH (21:01)
[2021-07-30] MEDS: PIPERACILLIN/TAZOBACTAM 3,375 MG in SODIUM CHLORIDE 0.9% 100 ML IV SCH ×3 (00:27→16:25)
[2021-07-30] MEDS: ACETAMINOPHEN 325 MG TABLET PO PRN ×3 (00:30→15:29)
[2021-07-30 05:19] LABS: Basophils % 0.3 % (0.0-0.8); Hematocrit 32.5 VOL% (35.7-47.0); Hemoglobin 10.1 GM/DL (12.0-16.0); Immature Granulocytes % 13.6 %; Immature Granulocytes Absolute 1.59 #; Lymphocytes # 0.2 10*3/uL (1.4-4.0); Lymphocytes % 1.5 % (21.3-54.2); Mean Corpuscular HGB Conc 31.1 GM/DL (32-36); Mean Corpuscular Volume 96.7 FL (87-102); Mean Platelet Volume 11.7 FL (9.6-12.0); Monocytes % 3.6 % (1.7-12.7); Platelet Count 45 T/CUMM (130-400); Red Blood Count 3.36 MC/CUMM (3.8-5.5); Red Cell Distribution Width 15.2 % (9.3-17.3); White Blood Count 11.7 T/CUMM (4-12)
[2021-07-30 05:53] LABS: Albumin 1.5 G/DL (3.4-5.0); Bilirubin,Total 0.5 MG/DL (0.20-1.00); Calcium 8.1 MG/DL (8.5-10.1); Ferritin 2865.6 ng/mL (8-252); Osmolality,Calculated 301.1 MOS/KG (273-304); Potassium 4.8 MMOL/L (3.5-5.1); Total Protein 4.4 G/DL (6.4-8.2)
[2021-07-30] MEDS: METOCLOPRAMIDE 10 MG/2 ML VIAL IV SCH ×3 (06:06→17:00)
[2021-07-30] MEDS: INSULIN REGULAR 100 UNIT/ML SUBCUT SCH ×3 (06:06→17:06)
[2021-07-30 06:18] LABS: Band Neutrophils 5 % (0-10); Hypochromia Slight; Lymphocytes 1 % (20-55); Microcytosis Slight; Myelocytes 1 %; Platelet Estimate Decreased; Segmented Neutrophils 82 % (50-85); Total Cells Counted 100
[2021-07-30] MEDS: fentaNYL INJ 1,250 MCG in SODIUM CHLORIDE 0.9% 225 ML IV PRN ×2 (07:11→13:42)
[2021-07-30] MEDS: MIDAZOLAM 100 MG in SODIUM CHLORIDE 0.9% 80 ML IV PRN (07:40)
[2021-07-30 07:56] LABS: ABG Base Excess -11.1 MMOL/L (-2.5-2.5); ABG HCO3 15.7 MMOL/L (20-26); ABG PCO2 38.1 MM HG (35-48); ABG PH 7.232 (7.35-7.45); ABG PO2 56.7 MM HG (80-95); ABG TCO2 16.8 MMOL/L (23-27); Allen Test Positive; Pt O2 Delivery Device Ventilator
[2021-07-30] MEDS: DEXAMETHASONE 4 MG/1 ML VIAL IV SCH (09:05)
[2021-07-30] MEDS: FAMOTIDINE 20 MG/2 ML VIAL IV SCH ×2 (09:08→20:37)
[2021-07-30] MEDS: MYCOPHENOLATE MOFETIL 250 MG CAPSULE PO SCH ×2 (09:14→20:31)
[2021-07-30] MEDS: ZINC GLUCONATE 50 MG TABLET PO SCH (09:15)
[2021-07-30] MEDS: ASCORBIC ACID 500 MG TABLET PO SCH ×2 (09:15→20:31)
[2021-07-30] MEDS: CHOLECALCIFEROL 1,000 UNIT TABLET PO SCH (09:15)
[2021-07-30] MEDS: MICAFUNGIN 100 MG in SODIUM CHLORIDE 0.9% 100 ML IV SCH (11:57)
[2021-07-30] MEDS ORDERED: SODIUM BICARB INJ 100 MEQ in STERILE WATER INJ 1,000 ML IV SCH (12:00)
[2021-07-30] MEDS: AZITHROMYCIN INJ 500 MG in SODIUM CHLORIDE 0.9% 250 ML IV SCH (15:12)
[2021-07-30] MEDS: methylPREDNISolone SOD SUC 40 MG/1 ML VIAL IV SCH (16:21)
[2021-07-30] MEDS: FOLIC ACID 1 MG TABLET PO SCH (20:31)
[2021-07-30] MEDS: METOPROLOL TARTRATE 25 MG TABLET PO SCH (20:31)
[2021-07-31] MEDS: INSULIN REGULAR 100 UNIT/ML SUBCUT SCH ×4 (00:43→18:00)
[2021-07-31] MEDS: PIPERACILLIN/TAZOBACTAM 3,375 MG in SODIUM CHLORIDE 0.9% 100 ML IV SCH ×3 (00:44→16:28)
[2021-07-31] MEDS: METOCLOPRAMIDE 10 MG/2 ML VIAL IV SCH ×4 (00:44→17:56)
[2021-07-31] MEDS: methylPREDNISolone SOD SUC 40 MG/1 ML VIAL IV SCH ×3 (00:44→15:08)
[2021-07-31 03:33] LABS: ABG Base Excess -8.9 MMOL/L (-2.5-2.5); ABG HCO3 17.2 MMOL/L (20-26); ABG Oxygen Saturation 95.6 % (95-100); ABG PO2 86.3 MM HG (80-95); ABG TCO2 15.4 MMOL/L (23-27)
[2021-07-31 05:28] LABS: Basophils % 0.1 % (0.0-0.8); Hematocrit 31.4 VOL% (35.7-47.0); Hemoglobin 9.8 GM/DL (12.0-16.0); Immature Granulocytes % 7.5 %; Lymphocytes # 0.2 10*3/uL (1.4-4.0); Lymphocytes % 2.4 % (21.3-54.2); Mean Corpuscular HGB Conc 31.2 GM/DL (32-36); Mean Corpuscular Volume 97.2 FL (87-102); Mean Platelet Volume 12.6 FL (9.6-12.0); Monocytes % 3.4 % (1.7-12.7); Neutrophils % 86.6 % (38.7-73.9); Red Blood Count 3.23 MC/CUMM (3.8-5.5); Red Cell Distribution Width 15.3 % (9.3-17.3)
[2021-07-31 05:32] LABS: Platelet Count 41 T/CUMM (130-400)
[2021-07-31 05:33] LABS: Albumin 1.4 G/DL (3.4-5.0); Bilirubin,Total 0.4 MG/DL (0.20-1.00); Calcium 7.7 MG/DL (8.5-10.1); Potassium 4.9 MMOL/L (3.5-5.1); Total Protein 4.3 G/DL (6.4-8.2)
[2021-07-31 05:55] LABS: Burr Cells Slight; Hypochromia Slight; Lymphocytes 2 % (20-55); Microcytosis Slight; Ovalocytes Slight; Platelet Estimate Decreased; Segmented Neutrophils 95 % (50-85); Total Cells Counted 100
[2021-07-31] MEDS: FAMOTIDINE 20 MG/2 ML VIAL IV SCH ×2 (08:10→20:44)
[2021-07-31] MEDS: CHOLECALCIFEROL 1,000 UNIT TABLET PO SCH (08:15)
[2021-07-31] MEDS: METOPROLOL TARTRATE 25 MG TABLET PO SCH ×2 (08:16→20:44)
[2021-07-31] MEDS: MYCOPHENOLATE MOFETIL 250 MG CAPSULE PO SCH ×2 (08:16→20:44)
[2021-07-31] MEDS: ZINC GLUCONATE 50 MG TABLET PO SCH (08:16)
[2021-07-31] MEDS: ASCORBIC ACID 500 MG TABLET PO SCH ×2 (08:16→20:44)
[2021-07-31] MEDS: ACETAMINOPHEN 325 MG TABLET PO PRN (11:28)
[2021-07-31] MEDS: MICAFUNGIN 100 MG in SODIUM CHLORIDE 0.9% 100 ML IV SCH (11:28)
[2021-07-31] MEDS: MIDAZOLAM 100 MG in SODIUM CHLORIDE 0.9% 80 ML IV PRN (11:31)
[2021-07-31] MEDS: fentaNYL INJ 1,250 MCG in SODIUM CHLORIDE 0.9% 225 ML IV PRN ×2 (13:33→22:05)
[2021-07-31] MEDS: AZITHROMYCIN INJ 500 MG in SODIUM CHLORIDE 0.9% 250 ML IV SCH (15:11)
[2021-07-31] MEDS: ROCURONIUM 500 MG in SODIUM CHLORIDE 0.9% 500 ML IV PRN (17:09)
[2021-07-31] MEDS ORDERED: ROCURONIUM 100 MG/10 ML VIAL IV ONE ×2 (17:27→17:30)
[2021-07-31 18:27] LABS: ABG Base Excess -10.2 MMOL/L (-2.5-2.5); ABG HCO3 16.3 MMOL/L (20-26); ABG Oxygen Saturation 98.9 % (95-100); ABG PH 7.219 (7.35-7.45); Allen Test Positive; Pt O2 Delivery Device Ventilator
[2021-07-31] MEDS: FOLIC ACID 1 MG TABLET PO SCH (20:44)
[2021-08-01] MEDS: INSULIN REGULAR 100 UNIT/ML SUBCUT SCH ×4 (00:32→18:39)
[2021-08-01] MEDS: METOCLOPRAMIDE 10 MG/2 ML VIAL IV SCH ×4 (00:32→20:17)
[2021-08-01] MEDS: PIPERACILLIN/TAZOBACTAM 3,375 MG in SODIUM CHLORIDE 0.9% 100 ML IV SCH ×2 (00:33→10:03)
[2021-08-01] MEDS: methylPREDNISolone SOD SUC 40 MG/1 ML VIAL IV SCH ×3 (00:33→15:52)
[2021-08-01 04:27] LABS: ABG Base Excess -11.2 MMOL/L (-2.5-2.5); ABG HCO3 15.4 MMOL/L (20-26); ABG Oxygen Saturation 84.5 % (95-100); ABG PCO2 47.4 MM HG (35-48); ABG PO2 61.7 MM HG (80-95); ABG TCO2 16.3 MMOL/L (23-27); Allen Test Positive; Pt O2 Delivery Device Ventilator
[2021-08-01 04:38] LABS: ABG PH 7.167 (7.35-7.45)
[2021-08-01 04:57] LABS: Basophils % 0.2 % (0.0-0.8); Hematocrit 30.9 VOL% (35.7-47.0); Hemoglobin 9.4 GM/DL (12.0-16.0); Immature Granulocytes % 11.4 %; Immature Granulocytes Absolute 0.49 #; Lymphocytes # 0.2 10*3/uL (1.4-4.0); Lymphocytes % 4.2 % (21.3-54.2); Mean Corpuscular HGB Conc 30.4 GM/DL (32-36); Mean Corpuscular Volume 98.4 FL (87-102); Monocytes % 5.1 % (1.7-12.7); Neutrophils % 79.1 % (38.7-73.9); Red Blood Count 3.14 MC/CUMM (3.8-5.5); Red Cell Distribution Width 15.2 % (9.3-17.3); White Blood Count 4.3 T/CUMM (4-12)
[2021-08-01 05:03] LABS: Platelet Count 29 T/CUMM (130-400)
[2021-08-01 05:10] LABS: Alanine Aminotransferase 16 U/L (13-56); Albumin 1.3 G/DL (3.4-5.0); Alkaline Phosphatase 54 U/L (45-117); Aspartate Amino Transferase 49 U/L (0-37); Bilirubin,Total < 0.39 MG/DL (0.20-1.00); Blood Urea Nitrogen 87 MG/DL (7-18); Calcium 8.3 MG/DL (8.5-10.1); Carbon Dioxide 20 MMOL/L (21-32); Estimated Glom Filtration Rate 19 ML/MIN; Ferritin 2614.3 ng/mL (8-252); Glucose 204 MG/DL (74-106); Potassium 5.4 MMOL/L (3.5-5.1); Sodium 143 MMOL/L (136-145); Total Protein 4.2 G/DL (6.4-8.2)
[2021-08-01 05:11] LABS: Band Neutrophils 1 % (0-10); Hypochromia 1+; Lymphocytes 2 % (20-55); Microcytosis 1+; Ovalocytes Slight; Platelet Estimate Decreased; Segmented Neutrophils 94 % (50-85); Total Cells Counted 100
[2021-08-01] MEDS: fentaNYL INJ 1,250 MCG in SODIUM CHLORIDE 0.9% 225 ML IV PRN ×3 (05:29→20:54)
[2021-08-01] MEDS: ROCURONIUM 500 MG in SODIUM CHLORIDE 0.9% 500 ML IV PRN ×2 (05:29→15:59)
[2021-08-01 08:16] LABS: Pneumocystis jiroveci Result Negative (Negative); Pneumocystis jiroveci Source BRONCH WASH
[2021-08-01] MEDS: METOPROLOL TARTRATE 25 MG TABLET PO SCH ×2 (09:50→20:17)
[2021-08-01] MEDS: MYCOPHENOLATE MOFETIL 250 MG CAPSULE PO SCH ×2 (09:50→20:17)
[2021-08-01] MEDS: ASCORBIC ACID 500 MG TABLET PO SCH ×2 (09:51→20:18)
[2021-08-01] MEDS: ZINC GLUCONATE 50 MG TABLET PO SCH (09:51)
[2021-08-01] MEDS: CHOLECALCIFEROL 1,000 UNIT TABLET PO SCH (09:51)
[2021-08-01] MEDS: FAMOTIDINE 20 MG/2 ML VIAL IV SCH (09:54)
[2021-08-01] MEDS: cefTRIAXone 1,000 MG in SODIUM CHLORIDE 0.9% 100 ML IV SCH (09:56)
[2021-08-01] MEDS: MICAFUNGIN 100 MG in SODIUM CHLORIDE 0.9% 100 ML IV SCH (12:30)
[2021-08-01] MEDS: MIDAZOLAM 100 MG in SODIUM CHLORIDE 0.9% 80 ML IV PRN (12:48)
[2021-08-01 14:41] LABS: M. Tuberculosis PCR Result Negative (Negative); M. Tuberculosis PCR Source BRONCH WASH
[2021-08-01] MEDS: AZITHROMYCIN INJ 500 MG in SODIUM CHLORIDE 0.9% 250 ML IV SCH (15:08)
[2021-08-01] MEDS: FOLIC ACID 1 MG TABLET PO SCH (20:17)
[2021-08-02] MEDS: INSULIN REGULAR 100 UNIT/ML SUBCUT SCH ×4 (00:44→18:57)
[2021-08-02] MEDS: methylPREDNISolone SOD SUC 40 MG/1 ML VIAL IV SCH ×3 (00:44→15:00)
[2021-08-02] MEDS: METOCLOPRAMIDE 10 MG/2 ML VIAL IV SCH ×4 (02:25→21:25)
[2021-08-02 04:47] LABS: Hematocrit 34.1 VOL% (35.7-47.0); Hemoglobin 10.3 GM/DL (12.0-16.0); Immature Granulocytes % 23.3 %; Immature Granulocytes Absolute 0.72 #; Lymphocytes # 0.1 10*3/uL (1.4-4.0); Lymphocytes % 3.2 % (21.3-54.2); Mean Corpuscular HGB Conc 30.2 GM/DL (32-36); Mean Corpuscular Volume 98.6 FL (87-102); Mean Platelet Volume 11.6 FL (9.6-12.0); Monocytes % 5.8 % (1.7-12.7); Neutrophils % 67.7 % (38.7-73.9); Red Blood Count 3.46 MC/CUMM (3.8-5.5); White Blood Count 3.1 T/CUMM (4-12)
[2021-08-02 04:50] LABS: Platelet Count 27 T/CUMM (130-400)
[2021-08-02 05:02] LABS: Alanine Aminotransferase 16 U/L (13-56); Albumin 1.4 G/DL (3.4-5.0); Alkaline Phosphatase 69 U/L (45-117); Aspartate Amino Transferase 31 U/L (0-37); Bilirubin,Total < 0.39 MG/DL (0.20-1.00); Blood Urea Nitrogen 99 MG/DL (7-18); Carbon Dioxide 18 MMOL/L (21-32); Estimated Glom Filtration Rate 15 ML/MIN; Glucose 190 MG/DL (74-106); Osmolality,Calculated 321.8 MOS/KG (273-304); Potassium 5.1 MMOL/L (3.5-5.1); Sodium 144 MMOL/L (136-145); Total Protein 4.5 G/DL (6.4-8.2)
[2021-08-02 05:03] LABS: ABG Base Excess -12.2 MMOL/L (-2.5-2.5); ABG HCO3 14.9 MMOL/L (20-26); ABG Oxygen Saturation 99.3 % (95-100); ABG PCO2 37.2 MM HG (35-48); ABG PH 7.213 (7.35-7.45); ABG TCO2 13.9 MMOL/L (23-27); Allen Test Positive; Pt O2 Delivery Device Ventilator
[2021-08-02 05:20] LABS: Band Neutrophils 3 % (0-10); Lymphocytes 1 % (20-55); Metamyelocytes 1 %; Segmented Neutrophils 88 % (50-85); Total Cells Counted 100
[2021-08-02 05:21] LABS: Acanthocytes Few; Burr Cells Slight; Microcytosis 1+
[2021-08-02 05:22] LABS: Platelet Estimate Decreased
[2021-08-02] MEDS: fentaNYL INJ 1,250 MCG in SODIUM CHLORIDE 0.9% 225 ML IV PRN (05:28)
[2021-08-02] MEDS: FAMOTIDINE 20 MG/2 ML VIAL IV SCH (08:14)
[2021-08-02] MEDS: CHOLECALCIFEROL 1,000 UNIT TABLET PO SCH (08:16)
[2021-08-02] MEDS: ZINC GLUCONATE 50 MG TABLET PO SCH (08:16)
[2021-08-02] MEDS: ASCORBIC ACID 500 MG TABLET PO SCH ×2 (08:16→21:26)
[2021-08-02] MEDS: MYCOPHENOLATE MOFETIL 250 MG CAPSULE PO SCH ×2 (08:16→21:26)
[2021-08-02] MEDS: METOPROLOL TARTRATE 25 MG TABLET PO SCH ×2 (08:16→21:26)
[2021-08-02] MEDS: cefTRIAXone 1,000 MG in SODIUM CHLORIDE 0.9% 100 ML IV SCH (09:15)
[2021-08-02 09:46] LABS: S. Pneumo Serotype 1 1.1 mcg/mL (>=2.3); S. Pneumo Serotype 10A < 0.4 mcg/mL (>=2.9); S. Pneumo Serotype 11A < 0.4 mcg/mL (>=2.4); S. Pneumo Serotype 12F 1.3 mcg/mL (>=0.6); S. Pneumo Serotype 14 5.6 mcg/mL (>=7.0); S. Pneumo Serotype 15B 0.5 mcg/mL (>=3.3); S. Pneumo Serotype 17F 0.8 mcg/mL (>=7.8); S. Pneumo Serotype 18C < 0.4 mcg/mL (>=3.3); S. Pneumo Serotype 19A 1.5 mcg/mL (>=17.1); S. Pneumo Serotype 19F 2.6 mcg/mL (>=15.0); S. Pneumo Serotype 2 < 0.4 mcg/mL (>=1.0); S. Pneumo Serotype 20 < 0.4 mcg/mL (>=1.3); S. Pneumo Serotype 22F 1.1 mcg/mL (>=7.2); S. Pneumo Serotype 23F 1.8 mcg/mL (>=8.0); S. Pneumo Serotype 3 < 0.4 mcg/mL (>=1.8); S. Pneumo Serotype 33F 0.4 mcg/mL (>=1.7); S. Pneumo Serotype 4 0.4 mcg/mL (>=0.6); S. Pneumo Serotype 6B < 0.4 mcg/mL (>=4.7); S. Pneumo Serotype 7F 1.6 mcg/mL (>=3.2); S. Pneumo Serotype 8 < 0.4 mcg/mL (>=2.9); S. Pneumo Serotype 9V 0.5 mcg/mL (>=2.6)
[2021-08-02] MEDS: MIDAZOLAM 100 MG in SODIUM CHLORIDE 0.9% 80 ML IV PRN (10:42)
[2021-08-02] MEDS: SODIUM CHLORIDE 23.4% CONC INJ 38.5 MEQ, SODIUM BICARB INJ 50 MEQ in STERILE WATER INJ ... IV SCH ×2 (10:44→21:26)
[2021-08-02] MEDS: MICAFUNGIN 100 MG in SODIUM CHLORIDE 0.9% 100 ML IV SCH (15:00)
[2021-08-02] MEDS: AMIODARONE INJ 450 MG in DEXTROSE 5% 241 ML IV SCH (21:12)
[2021-08-02] MEDS: FOLIC ACID 1 MG TABLET PO SCH (21:26)
[2021-08-02 22:26] LABS: Calcium 8.6 MG/DL (8.5-10.1); Osmolality,Calculated 328.8 MOS/KG (273-304); Potassium 5.2 MMOL/L (3.5-5.1)
[2021-08-03] MEDS: INSULIN REGULAR 100 UNIT/ML SUBCUT SCH ×4 (00:23→18:14)
[2021-08-03] MEDS: methylPREDNISolone SOD SUC 40 MG/1 ML VIAL IV SCH ×3 (00:24→16:36)
[2021-08-03] MEDS: fentaNYL INJ 1,250 MCG in SODIUM CHLORIDE 0.9% 225 ML IV PRN (02:07)
[2021-08-03] MEDS: METOCLOPRAMIDE 10 MG/2 ML VIAL IV SCH ×4 (02:39→21:30)
[2021-08-03 03:34] LABS: Basophils % 0.3 % (0.0-0.8); Hematocrit 34.4 VOL% (35.7-47.0); Hemoglobin 10.4 GM/DL (12.0-16.0); Immature Granulocytes % 6.1 %; Immature Granulocytes Absolute 0.24 #; Lymphocytes # 0.1 10*3/uL (1.4-4.0); Mean Corpuscular HGB Conc 30.2 GM/DL (32-36); Mean Corpuscular Volume 98.9 FL (87-102); Mean Platelet Volume 10.6 FL (9.6-12.0); Monocytes % 3.3 % (1.7-12.7); NRBC # 0.02 10*3/uL; Neutrophils % 88.3 % (38.7-73.9); Red Blood Count 3.48 MC/CUMM (3.8-5.5); Red Cell Distribution Width 14.9 % (9.3-17.3); White Blood Count 3.9 T/CUMM (4-12)
[2021-08-03 03:48] LABS: Albumin 1.4 G/DL (3.4-5.0); Bilirubin,Total 0.5 MG/DL (0.20-1.00); Calcium 8.6 MG/DL (8.5-10.1); Osmolality,Calculated 332.8 MOS/KG (273-304); Potassium 4.9 MMOL/L (3.5-5.1); Total Protein 4.5 G/DL (6.4-8.2)
[2021-08-03 03:54] LABS: ABG Base Excess -12.8 MMOL/L (-2.5-2.5); ABG HCO3 14.4 MMOL/L (20-26); ABG Oxygen Saturation 90.9 % (95-100); ABG PCO2 37.5 MM HG (35-48); ABG PO2 73.7 MM HG (80-95); ABG TCO2 13.6 MMOL/L (23-27)
[2021-08-03 04:07] LABS: Platelet Count 32 T/CUMM (130-400)
[2021-08-03 04:35] LABS: Band Neutrophils 3 % (0-10); Burr Cells Slight; Hypochromia Slight; Lymphocytes 2 % (20-55); Microcytosis Slight; Ovalocytes Slight; Platelet Estimate Decreased; Segmented Neutrophils 91 % (50-85); Total Cells Counted 100
[2021-08-03] MEDS: AMIODARONE INJ 450 MG in DEXTROSE 5% 241 ML IV SCH ×3 (05:53→22:01)
[2021-08-03] MEDS ORDERED: hydrALAZINE 20 MG/1 ML VIAL ONE (06:36)
[2021-08-03] MEDS: hydrALAZINE 20 MG/1 ML VIAL IV PRN (06:42)
[2021-08-03] MEDS ORDERED: METOPROLOL TARTRATE 5 MG/5 ML VIAL IV ONE ×2 (08:24→08:26)
[2021-08-03] MEDS: SODIUM CHLORIDE 23.4% CONC INJ 38.5 MEQ, SODIUM BICARB INJ 50 MEQ in STERILE WATER INJ ... IV SCH ×2 (08:31→18:15)
[2021-08-03] MEDS: cefTRIAXone 1,000 MG in SODIUM CHLORIDE 0.9% 100 ML IV SCH (09:05)
[2021-08-03] MEDS: FAMOTIDINE 20 MG/2 ML VIAL IV SCH (09:06)
[2021-08-03] MEDS: ZINC GLUCONATE 50 MG TABLET PO SCH (09:06)
[2021-08-03] MEDS: CHOLECALCIFEROL 1,000 UNIT TABLET PO SCH (09:07)
[2021-08-03] MEDS: MYCOPHENOLATE MOFETIL 250 MG CAPSULE PO SCH ×2 (09:07→21:31)
[2021-08-03] MEDS: METOPROLOL TARTRATE 100 MG TABLET PO SCH ×2 (09:07→21:31)
[2021-08-03] MEDS: ASCORBIC ACID 500 MG TABLET PO SCH ×2 (09:07→21:31)
[2021-08-03] MEDS ORDERED: FUROSEMIDE 40 MG/4 ML VIAL IV ONE (09:46)
[2021-08-03] MEDS: MICAFUNGIN 100 MG in SODIUM CHLORIDE 0.9% 100 ML IV SCH (12:48)
[2021-08-03] MEDS ORDERED: DOXAZOSIN 2 MG TABLET PO SCH (13:00)
[2021-08-03] MEDS: DOXAZOSIN 1 MG TABLET PO SCH (14:10)
[2021-08-03] MEDS: amLODIPine 10 MG TABLET PO SCH (14:10)
[2021-08-03] MEDS ORDERED: FUROSEMIDE 100 MG/10 ML VIAL IV ONE (20:54)
[2021-08-03] MEDS ORDERED: FUROSEMIDE INJ 120 MG in SODIUM CHLORIDE 0.9% 50 ML IV ONE (21:00)
[2021-08-03] MEDS ORDERED: FUROSEMIDE 40 MG/4 ML VIAL ONE (21:06)
[2021-08-03] MEDS: FOLIC ACID 1 MG TABLET PO SCH (21:31)
[2021-08-04] MEDS: methylPREDNISolone SOD SUC 40 MG/1 ML VIAL IV SCH ×3 (00:17→17:00)
[2021-08-04] MEDS: INSULIN REGULAR 100 UNIT/ML SUBCUT SCH ×4 (00:17→17:20)
[2021-08-04] MEDS: METOCLOPRAMIDE 10 MG/2 ML VIAL IV SCH ×4 (01:02→20:45)
[2021-08-04 03:53] LABS: ABG HCO3 16.5 MMOL/L (20-26); ABG Oxygen Saturation 96.3 % (95-100); ABG PCO2 38.3 MM HG (35-48); ABG PH 7.248 (7.35-7.45); ABG TCO2 15.3 MMOL/L (23-27); Allen Test Positive; Pt O2 Delivery Device Ventilator
[2021-08-04 05:46] LABS: Basophils % 0.6 % (0.0-0.8); Hemoglobin 10.7 GM/DL (12.0-16.0); Immature Granulocytes % 22.1 %; Immature Granulocytes Absolute 1.14 #; Lymphocytes # 0.2 10*3/uL (1.4-4.0); Lymphocytes % 4.1 % (21.3-54.2); Mean Corpuscular HGB Conc 31.5 GM/DL (32-36); Mean Corpuscular Volume 93.9 FL (87-102); Monocytes % 4.3 % (1.7-12.7); NRBC # 0.05 10*3/uL; Neutrophils % 68.9 % (38.7-73.9); Red Blood Count 3.62 MC/CUMM (3.8-5.5); Red Cell Distribution Width 14.8 % (9.3-17.3); White Blood Count 5.2 T/CUMM (4-12)
[2021-08-04 05:50] LABS: Platelet Count 32 T/CUMM (130-400)
[2021-08-04 05:57] LABS: Albumin 1.5 G/DL (3.4-5.0); Bilirubin,Total 1.4 MG/DL (0.20-1.00); Calcium 8.2 MG/DL (8.5-10.1); Osmolality,Calculated 321.4 MOS/KG (273-304); Potassium 4.6 MMOL/L (3.5-5.1); Total Protein 4.5 G/DL (6.4-8.2)
[2021-08-04] MEDS: SODIUM CHLORIDE 23.4% CONC INJ 38.5 MEQ, SODIUM BICARB INJ 50 MEQ in STERILE WATER INJ ... IV SCH ×2 (06:23→11:21)
[2021-08-04] MEDS: AMIODARONE INJ 450 MG in DEXTROSE 5% 241 ML IV SCH ×2 (06:23→12:56)
[2021-08-04] MEDS: hydrALAZINE 20 MG/1 ML VIAL IV PRN (07:42)
[2021-08-04 07:49] LABS: Lymphocytes 9 % (20-55); Nucleated Red Blood Cells 1 (0-5); Platelet Estimate Decreased; Segmented Neutrophils 84 % (50-85); Total Cells Counted 100
[2021-08-04 07:50] LABS: Hypochromia 1+; Microcytosis 1+
[2021-08-04] MEDS: SODIUM BICARBONATE 650 MG TABLET PO SCH ×2 (09:15→20:42)
[2021-08-04] MEDS: ZINC GLUCONATE 50 MG TABLET PO SCH (09:16)
[2021-08-04] MEDS: ASCORBIC ACID 500 MG TABLET PO SCH ×2 (09:16→20:42)
[2021-08-04] MEDS: METOPROLOL TARTRATE 100 MG TABLET PO SCH ×2 (09:16→20:42)
[2021-08-04] MEDS: CHOLECALCIFEROL 1,000 UNIT TABLET PO SCH (09:16)
[2021-08-04] MEDS: DOXAZOSIN 1 MG TABLET PO SCH (09:16)
[2021-08-04] MEDS: amLODIPine 10 MG TABLET PO SCH (09:16)
[2021-08-04] MEDS: MYCOPHENOLATE MOFETIL 250 MG CAPSULE PO SCH ×2 (09:16→20:42)
[2021-08-04] MEDS: FAMOTIDINE 20 MG/2 ML VIAL IV SCH (09:18)
[2021-08-04] MEDS: cefTRIAXone 1,000 MG in SODIUM CHLORIDE 0.9% 100 ML IV SCH (09:34)
[2021-08-04] MEDS: MICAFUNGIN 100 MG in SODIUM CHLORIDE 0.9% 100 ML IV SCH (12:09)
[2021-08-04] MEDS: FUROSEMIDE INJ 100 MG in SODIUM CHLORIDE 0.9% 90 ML IV SCH ×2 (12:48→21:49)
[2021-08-04] MEDS: FOLIC ACID 1 MG TABLET PO SCH (20:42)
[2021-08-05] MEDS: INSULIN REGULAR 100 UNIT/ML SUBCUT SCH ×5 (00:22→23:56)
[2021-08-05] MEDS: methylPREDNISolone SOD SUC 40 MG/1 ML VIAL IV SCH ×4 (00:22→23:56)
[2021-08-05] MEDS: METOCLOPRAMIDE 10 MG/2 ML VIAL IV SCH ×4 (01:16→20:26)
[2021-08-05 03:54] LABS: ABG Base Excess -8.1 MMOL/L (-2.5-2.5); ABG HCO3 17.3 MMOL/L (20-26); ABG Oxygen Saturation 94.8 % (95-100); ABG PCO2 35.3 MM HG (35-48); ABG PH 7.309 (7.35-7.45); ABG PO2 84.9 MM HG (80-95); ABG TCO2 18.4 MMOL/L (23-27)
[2021-08-05 04:26] LABS: Basophils % 0.3 % (0.0-0.8); Hematocrit 30.4 VOL% (35.7-47.0); Hemoglobin 9.5 GM/DL (12.0-16.0); Immature Granulocytes % 18.6 %; Immature Granulocytes Absolute 1.22 #; Lymphocytes # 0.2 10*3/uL (1.4-4.0); Lymphocytes % 3.2 % (21.3-54.2); Mean Corpuscular HGB Conc 31.3 GM/DL (32-36); Mean Corpuscular Volume 94.7 FL (87-102); Monocytes % 4.4 % (1.7-12.7); NRBC # 0.07 10*3/uL; Neutrophils % 73.5 % (38.7-73.9); Red Blood Count 3.21 MC/CUMM (3.8-5.5); Red Cell Distribution Width 14.8 % (9.3-17.3); White Blood Count 6.6 T/CUMM (4-12)
[2021-08-05 04:31] LABS: Platelet Count 28 T/CUMM (130-400)
[2021-08-05 04:46] LABS: Alanine Aminotransferase 17 U/L (13-56); Albumin 1.4 G/DL (3.4-5.0); Alkaline Phosphatase 207 U/L (45-117); Aspartate Amino Transferase 39 U/L (0-37); Bilirubin,Total < 0.39 MG/DL (0.20-1.00); Blood Urea Nitrogen 132 MG/DL (7-18); Calcium 8.6 MG/DL (8.5-10.1); Carbon Dioxide 20 MMOL/L (21-32); Estimated Glom Filtration Rate 15 ML/MIN; Glucose 191 MG/DL (74-106); Osmolality,Calculated 322.7 MOS/KG (273-304); Potassium 4.6 MMOL/L (3.5-5.1); Sodium 138 MMOL/L (136-145); Total Protein 4.2 G/DL (6.4-8.2)
[2021-08-05 05:15] LABS: Lymphocytes 8 % (20-55); Platelet Estimate Decreased; Segmented Neutrophils 86 % (50-85); Total Cells Counted 100
[2021-08-05 05:16] LABS: Acanthocytes 1+
[2021-08-05] MEDS: SODIUM CHLORIDE 23.4% CONC INJ 38.5 MEQ, SODIUM BICARB INJ 50 MEQ in STERILE WATER INJ ... IV SCH (05:30)
[2021-08-05] MEDS: FUROSEMIDE INJ 100 MG in SODIUM CHLORIDE 0.9% 90 ML IV SCH ×2 (09:09→19:00)
[2021-08-05] MEDS: METOPROLOL TARTRATE 100 MG TABLET PO SCH ×2 (09:50→20:26)
[2021-08-05] MEDS: DOXAZOSIN 1 MG TABLET PO SCH (09:50)
[2021-08-05] MEDS: amLODIPine 10 MG TABLET PO SCH (09:50)
[2021-08-05] MEDS: ZINC GLUCONATE 50 MG TABLET PO SCH (09:50)
[2021-08-05] MEDS: ASCORBIC ACID 500 MG TABLET PO SCH ×2 (09:50→20:26)
[2021-08-05] MEDS: CHOLECALCIFEROL 1,000 UNIT TABLET PO SCH (09:50)
[2021-08-05] MEDS: MYCOPHENOLATE MOFETIL 250 MG CAPSULE PO SCH ×2 (09:50→20:27)
[2021-08-05] MEDS: ALBUMIN 25% 25 GM/100 ML VIAL IV SCH ×2 (10:27→17:00)
[2021-08-05] MEDS: SODIUM BICARBONATE 650 MG TABLET PO SCH ×2 (10:29→20:26)
[2021-08-05] MEDS: FAMOTIDINE 20 MG/2 ML VIAL IV SCH (10:29)
[2021-08-05] MEDS: cefTRIAXone 1,000 MG in SODIUM CHLORIDE 0.9% 100 ML IV SCH (10:31)
[2021-08-05] MEDS: MICAFUNGIN 100 MG in SODIUM CHLORIDE 0.9% 100 ML IV SCH (11:39)
[2021-08-05] MEDS: FOLIC ACID 1 MG TABLET PO SCH (20:26)
[2021-08-05] MEDS ORDERED: MIDAZOLAM 100 MG in SODIUM CHLORIDE 0.9% 80 ML IV PRN (20:37)
[2021-08-06] MEDS: ALBUMIN 25% 25 GM/100 ML VIAL IV SCH ×3 (00:08→18:15)
[2021-08-06] MEDS: hydrALAZINE 20 MG/1 ML VIAL IV PRN (01:10)
[2021-08-06] MEDS: METOCLOPRAMIDE 10 MG/2 ML VIAL IV SCH ×4 (01:12→20:01)
[2021-08-06 04:29] LABS: ABG HCO3 19.3 MMOL/L (20-26); ABG Oxygen Saturation 87.2 % (95-100); ABG PCO2 48.2 MM HG (35-48); ABG PH 7.251 (7.35-7.45); ABG PO2 64.8 MM HG (80-95); Albumin 2.6 G/DL (3.4-5.0); Bilirubin,Total 0.5 MG/DL (0.20-1.00); Calcium 8.3 MG/DL (8.5-10.1); Osmolality,Calculated 331.4 MOS/KG (273-304); Potassium 4.8 MMOL/L (3.5-5.1); Total Protein 4.8 G/DL (6.4-8.2)
[2021-08-06] MEDS: ROCURONIUM 500 MG in SODIUM CHLORIDE 0.9% 500 ML IV PRN (04:40)
[2021-08-06] MEDS: FUROSEMIDE INJ 100 MG in SODIUM CHLORIDE 0.9% 90 ML IV SCH ×2 (04:41→15:00)
[2021-08-06] MEDS: INSULIN REGULAR 100 UNIT/ML SUBCUT SCH ×4 (05:25→23:11)
[2021-08-06 06:42] LABS: Basophils % 0.2 % (0.0-0.8); Hemoglobin 7.3 GM/DL (12.0-16.0); Immature Granulocytes % 23.6 %; Immature Granulocytes Absolute 1.53 #; Lymphocytes # 0.2 10*3/uL (1.4-4.0); Lymphocytes % 3.4 % (21.3-54.2); Mean Corpuscular HGB Conc 31.7 GM/DL (32-36); Mean Corpuscular Volume 94.7 FL (87-102); Monocytes % 4.5 % (1.7-12.7); NRBC # 0.06 10*3/uL; Neutrophils % 68.3 % (38.7-73.9); Red Blood Count 2.43 MC/CUMM (3.8-5.5); Red Cell Distribution Width 14.7 % (9.3-17.3); White Blood Count 6.5 T/CUMM (4-12)
[2021-08-06 06:44] LABS: Platelet Count 25 T/CUMM (130-400)
[2021-08-06 07:00] LABS: Band Neutrophils 3 % (0-10); Hypochromia 1+; Lymphocytes 1 % (20-55); Microcytosis 1+; Myelocytes 3 %; Nucleated Red Blood Cells 2 (0-5); Ovalocytes Slight; Platelet Estimate Decreased; Segmented Neutrophils 84 % (50-85); Total Cells Counted 100
[2021-08-06] MEDS: MYCOPHENOLATE MOFETIL 250 MG CAPSULE PO SCH ×2 (09:50→20:01)
[2021-08-06] MEDS: methylPREDNISolone SOD SUC 40 MG/1 ML VIAL IV SCH ×2 (09:50→18:00)
[2021-08-06] MEDS: ZINC GLUCONATE 50 MG TABLET PO SCH (09:50)
[2021-08-06] MEDS: amLODIPine 10 MG TABLET PO SCH (09:50)
[2021-08-06] MEDS: CHOLECALCIFEROL 1,000 UNIT TABLET PO SCH (09:50)
[2021-08-06] MEDS: ASCORBIC ACID 500 MG TABLET PO SCH ×2 (09:50→20:01)
[2021-08-06] MEDS: DOXAZOSIN 1 MG TABLET PO SCH (09:50)
[2021-08-06] MEDS: SODIUM BICARBONATE 650 MG TABLET PO SCH ×2 (09:50→20:01)
[2021-08-06] MEDS: METOPROLOL TARTRATE 100 MG TABLET PO SCH ×2 (09:50→20:01)
[2021-08-06] MEDS: cefTRIAXone 1,000 MG in SODIUM CHLORIDE 0.9% 100 ML IV SCH (10:15)
[2021-08-06] MEDS ORDERED: SODIUM BICARB INJ 100 MEQ in SODIUM CHLORIDE 0.45% 1,000 ML IV SCH (10:30)
[2021-08-06] MEDS: PANTOPRAZOLE 40 MG VIAL IV SCH ×2 (10:46→20:01)
[2021-08-06] MEDS: DEXMEDETOMIDINE 200 MCG in SODIUM CHLORIDE 0.9% 48 ML IV PRN ×2 (10:48→22:10)
[2021-08-06] MEDS: MICAFUNGIN 100 MG in SODIUM CHLORIDE 0.9% 100 ML IV SCH (11:47)
[2021-08-06] MEDS: SODIUM CHLORIDE 23.4% CONC INJ 38.5 MEQ, SODIUM BICARB INJ 100 MEQ in STERILE WATER INJ... IV SCH (15:47)
[2021-08-06] MEDS: FOLIC ACID 1 MG TABLET PO SCH (20:01)
[2021-08-07] MEDS: ALBUMIN 25% 25 GM/100 ML VIAL IV SCH ×3 (00:41→16:47)
[2021-08-07] MEDS: methylPREDNISolone SOD SUC 40 MG/1 ML VIAL IV SCH ×3 (00:41→15:09)
[2021-08-07] MEDS: METOCLOPRAMIDE 10 MG/2 ML VIAL IV SCH ×4 (01:13→20:19)
[2021-08-07] MEDS: FUROSEMIDE INJ 100 MG in SODIUM CHLORIDE 0.9% 90 ML IV SCH ×2 (01:14→14:40)
[2021-08-07 03:22] LABS: Basophils % 0.1 % (0.0-0.8); Hematocrit 26.9 VOL% (35.7-47.0); Hemoglobin 8.4 GM/DL (12.0-16.0); Immature Granulocytes % 71.6 %; Immature Granulocytes Absolute 7.54 #; Lymphocytes # 0.2 10*3/uL (1.4-4.0); Lymphocytes % 1.5 % (21.3-54.2); Mean Corpuscular HGB Conc 31.2 GM/DL (32-36); Mean Corpuscular Volume 91.8 FL (87-102); Monocytes % 2.7 % (1.7-12.7); NRBC # 0.06 10*3/uL; Neutrophils % 24.1 % (38.7-73.9); Red Blood Count 2.93 MC/CUMM (3.8-5.5); Red Cell Distribution Width 17.9 % (9.3-17.3); White Blood Count 10.5 T/CUMM (4-12)
[2021-08-07 03:30] LABS: Platelet Count 18 T/CUMM (130-400)
[2021-08-07 03:35] LABS: Bilirubin,Total 0.6 MG/DL (0.20-1.00); Calcium 8.4 MG/DL (8.5-10.1); Osmolality,Calculated 331.3 MOS/KG (273-304); Potassium 4.9 MMOL/L (3.5-5.1)
[2021-08-07 04:04] LABS: Band Neutrophils 7 % (0-10); Eosinophils 1 % (0-10); Hypochromia 1+; Lymphocytes 1 % (20-55); Microcytosis 1+; Myelocytes 7 %; Platelet Estimate Decreased; Segmented Neutrophils 83 % (50-85); Total Cells Counted 100
[2021-08-07 05:27] LABS: ABG HCO3 19.3 MMOL/L (20-26); ABG PCO2 50.7 MM HG (35-48); ABG PH 7.234 (7.35-7.45); ABG PO2 60.8 MM HG (80-95); ABG TCO2 20.5 MMOL/L (23-27)
[2021-08-07] MEDS: INSULIN REGULAR 100 UNIT/ML SUBCUT SCH ×3 (06:04→18:09)
[2021-08-07] MEDS: DEXMEDETOMIDINE 200 MCG in SODIUM CHLORIDE 0.9% 48 ML IV PRN ×2 (06:31→10:43)
[2021-08-07] MEDS: DOXAZOSIN 1 MG TABLET PO SCH (09:26)
[2021-08-07] MEDS: ZINC GLUCONATE 50 MG TABLET PO SCH (09:26)
[2021-08-07] MEDS: SODIUM BICARBONATE 650 MG TABLET PO SCH ×2 (09:26→20:16)
[2021-08-07] MEDS: CHOLECALCIFEROL 1,000 UNIT TABLET PO SCH (09:27)
[2021-08-07] MEDS: METOPROLOL TARTRATE 100 MG TABLET PO SCH ×2 (09:27→20:19)
[2021-08-07] MEDS: MYCOPHENOLATE MOFETIL 250 MG CAPSULE PO SCH ×2 (09:27→20:17)
[2021-08-07] MEDS: amLODIPine 10 MG TABLET PO SCH (09:27)
[2021-08-07] MEDS: ASCORBIC ACID 500 MG TABLET PO SCH ×2 (09:27→20:17)
[2021-08-07] MEDS: PANTOPRAZOLE 40 MG VIAL IV SCH ×2 (09:28→20:19)
[2021-08-07] MEDS: cefTRIAXone 1,000 MG in SODIUM CHLORIDE 0.9% 100 ML IV SCH (09:29)
[2021-08-07] MEDS ORDERED: SODIUM CHLORIDE 0.9% 1,000 ML IV PRN (10:16)
[2021-08-07] MEDS: MICAFUNGIN 100 MG in SODIUM CHLORIDE 0.9% 100 ML IV SCH (11:32)
[2021-08-07] MEDS: SODIUM CHLORIDE 23.4% CONC INJ 38.5 MEQ, SODIUM BICARB INJ 100 MEQ in STERILE WATER INJ... IV SCH (14:40)
[2021-08-07] MEDS: NOREPINEPHRINE 8 MG in SODIUM CHLORIDE 0.9% 242 ML IV PRN (19:45)
[2021-08-07] MEDS: FOLIC ACID 1 MG TABLET PO SCH (20:17)
[2021-08-08] MEDS: INSULIN REGULAR 100 UNIT/ML SUBCUT SCH ×5 (00:01→23:26)
[2021-08-08] MEDS: DEXMEDETOMIDINE 200 MCG in SODIUM CHLORIDE 0.9% 48 ML IV PRN (00:01)
[2021-08-08] MEDS: METOCLOPRAMIDE 10 MG/2 ML VIAL IV SCH ×4 (01:14→19:45)
[2021-08-08 03:55] LABS: ABG Base Excess -5.3 MMOL/L (-2.5-2.5); ABG HCO3 19.8 MMOL/L (20-26); ABG Oxygen Saturation 82.9 % (95-100); ABG PCO2 64.5 MM HG (35-48); ABG PO2 59.1 MM HG (80-95); ABG TCO2 22.9 MMOL/L (23-27)
[2021-08-08 03:56] LABS: ABG PH 7.167 (7.35-7.45)
[2021-08-08 03:57] LABS: Basophils % 0.1 % (0.0-0.8); Hematocrit 20.4 VOL% (35.7-47.0); Immature Granulocytes % 64.9 %; Immature Granulocytes Absolute 8.93 #; Lymphocytes # 0.1 10*3/uL (1.4-4.0); Mean Corpuscular HGB Conc 30.9 GM/DL (32-36); Mean Corpuscular Volume 93.6 FL (87-102); Mean Platelet Volume 11.8 FL (9.6-12.0); Monocytes % 4.6 % (1.7-12.7); NRBC # 0.04 10*3/uL; Neutrophils % 29.4 % (38.7-73.9); Red Cell Distribution Width 18.6 % (9.3-17.3)
[2021-08-08 03:58] LABS: Red Blood Count 2.18 MC/CUMM (3.8-5.5); White Blood Count 13.8 T/CUMM (4-12)
[2021-08-08 04:00] LABS: Hemoglobin 6.3 GM/DL (12.0-16.0); Platelet Count 26 T/CUMM (130-400)
[2021-08-08 04:14] LABS: Albumin 3.1 G/DL (3.4-5.0); Bilirubin,Total 1.4 MG/DL (0.20-1.00); Calcium 8.3 MG/DL (8.5-10.1); Osmolality,Calculated 334.4 MOS/KG (273-304); Potassium 5.6 MMOL/L (3.5-5.1); Total Protein 4.9 G/DL (6.4-8.2)
[2021-08-08 04:18] LABS: Band Neutrophils 8 % (0-10); Hypochromia 1+; Lymphocytes 1 % (20-55); Metamyelocytes 2 %; Microcytosis 1+; Promyelocytes 3 %; Segmented Neutrophils 81 % (50-85); Total Cells Counted 100
[2021-08-08 04:19] LABS: Ovalocytes Slight; Platelet Estimate Decreased; Tear Drop Cells Slight
[2021-08-08] MEDS: methylPREDNISolone SOD SUC 40 MG/1 ML VIAL IV SCH ×4 (07:55→23:26)
[2021-08-08] MEDS: PANTOPRAZOLE 40 MG VIAL IV SCH (08:03)
[2021-08-08] MEDS: METOPROLOL TARTRATE 100 MG TABLET PO SCH (08:05)
[2021-08-08] MEDS: MYCOPHENOLATE MOFETIL 250 MG CAPSULE PO SCH ×2 (08:05→20:09)
[2021-08-08] MEDS: SODIUM BICARBONATE 650 MG TABLET PO SCH ×2 (08:06→20:09)
[2021-08-08] MEDS: ZINC GLUCONATE 50 MG TABLET PO SCH (08:06)
[2021-08-08] MEDS: amLODIPine 10 MG TABLET PO SCH (08:06)
[2021-08-08] MEDS: DOXAZOSIN 1 MG TABLET PO SCH (08:06)
[2021-08-08] MEDS: ASCORBIC ACID 500 MG TABLET PO SCH ×2 (08:06→20:09)
[2021-08-08] MEDS: CHOLECALCIFEROL 1,000 UNIT TABLET PO SCH (08:06)
[2021-08-08] MEDS: ALBUMIN 25% 25 GM/100 ML VIAL IV SCH ×2 (09:01)
[2021-08-08] MEDS: NOREPINEPHRINE 8 MG in SODIUM CHLORIDE 0.9% 242 ML IV PRN (09:02)
[2021-08-08] MEDS: cefTRIAXone 1,000 MG in SODIUM CHLORIDE 0.9% 100 ML IV SCH (09:03)
[2021-08-08] MEDS: SODIUM CHLORIDE 23.4% CONC INJ 38.5 MEQ, SODIUM BICARB INJ 100 MEQ in STERILE WATER INJ... IV SCH ×2 (10:24→17:19)
[2021-08-08] MEDS: SODIUM ZIRCONIUM CYCLOSILICATE 10 GM PACK PO SCH (12:49)
[2021-08-08] MEDS: MICAFUNGIN 100 MG in SODIUM CHLORIDE 0.9% 100 ML IV SCH (12:49)
[2021-08-08 15:11] VITALS: BP 142/52
[2021-08-08 16:30] LABS: Hemoglobin 10.1 GM/DL (12.0-16.0)
[2021-08-08 16:42] LABS: Calcium 8.5 MG/DL (8.5-10.1); Osmolality,Calculated 335.7 MOS/KG (273-304); Potassium 5.7 MMOL/L (3.5-5.1)
[2021-08-08] MEDS ORDERED: INSULIN REGULAR 10 UNIT, CALCIUM GLUCONATE 1,000 MG in DEXTROSE 10% 250 ML IV ONE (17:08)
[2021-08-08] MEDS: FOLIC ACID 1 MG TABLET PO SCH (20:09)
[2021-08-08] MEDS: FAMOTIDINE 20 MG/2 ML VIAL IV SCH (20:09)
[2021-08-09] MEDS: METOCLOPRAMIDE 10 MG/2 ML VIAL IV SCH ×4 (01:20→20:03)
[2021-08-09 03:21] LABS: ABG Base Excess -7.5 MMOL/L (-2.5-2.5); ABG HCO3 18.3 MMOL/L (20-26); ABG Oxygen Saturation 95.9 % (95-100); ABG PO2 95.8 MM HG (80-95); ABG TCO2 21.2 MMOL/L (23-27)
[2021-08-09 03:23] LABS: ABG PH 7.144 (7.35-7.45)
[2021-08-09 03:26] LABS: Basophils % 0.1 % (0.0-0.8); Hemoglobin 9.6 GM/DL (12.0-16.0); Immature Granulocytes Absolute 2.22 #; Lymphocytes # 0.1 10*3/uL (1.4-4.0); Lymphocytes % 0.9 % (21.3-54.2); Mean Corpuscular Volume 91.7 FL (87-102); Monocytes % 4.9 % (1.7-12.7); NRBC # 0.02 10*3/uL; Neutrophils % 78.1 % (38.7-73.9); Red Blood Count 3.27 MC/CUMM (3.8-5.5); Red Cell Distribution Width 17.4 % (9.3-17.3); White Blood Count 13.9 T/CUMM (4-12)
[2021-08-09 03:27] LABS: Platelet Count 38 T/CUMM (130-400)
[2021-08-09 03:41] LABS: Calcium 7.9 MG/DL (8.5-10.1); Osmolality,Calculated 337.8 MOS/KG (273-304); Potassium 5.4 MMOL/L (3.5-5.1)
[2021-08-09 03:45] LABS: Band Neutrophils 4 % (0-10); Hypochromia 1+; Lymphocytes 1 % (20-55); Microcytosis 1+; Platelet Estimate Decreased; Segmented Neutrophils 89 % (50-85); Total Cells Counted 100
[2021-08-09] MEDS: INSULIN REGULAR 100 UNIT/ML SUBCUT SCH ×4 (05:10→23:33)
[2021-08-09] MEDS: methylPREDNISolone SOD SUC 40 MG/1 ML VIAL IV SCH ×3 (07:19→23:32)
[2021-08-09] MEDS: SODIUM ZIRCONIUM CYCLOSILICATE 10 GM PACK PO SCH (08:19)
[2021-08-09] MEDS: MYCOPHENOLATE MOFETIL 250 MG CAPSULE PO SCH ×2 (08:19→20:04)
[2021-08-09] MEDS: ASCORBIC ACID 500 MG TABLET PO SCH ×2 (08:19→20:04)
[2021-08-09] MEDS: SODIUM BICARBONATE 650 MG TABLET PO SCH ×2 (08:19→20:04)
[2021-08-09] MEDS: ZINC GLUCONATE 50 MG TABLET PO SCH (08:19)
[2021-08-09] MEDS: CHOLECALCIFEROL 1,000 UNIT TABLET PO SCH (08:19)
[2021-08-09] MEDS: MICAFUNGIN 100 MG in SODIUM CHLORIDE 0.9% 100 ML IV SCH (12:18)
[2021-08-09] MEDS: FAMOTIDINE 20 MG/2 ML VIAL IV SCH (20:03)
[2021-08-09] MEDS: FOLIC ACID 1 MG TABLET PO SCH (20:04)
[2021-08-10] MEDS: METOCLOPRAMIDE 10 MG/2 ML VIAL IV SCH ×4 (01:48→20:55)
[2021-08-10 03:16] LABS: Basophils % 0.1 % (0.0-0.8); Hematocrit 25.2 VOL% (35.7-47.0); Hemoglobin 8.2 GM/DL (12.0-16.0); Immature Granulocytes % 7.4 %; Immature Granulocytes Absolute 1.44 #; Lymphocytes # 0.1 10*3/uL (1.4-4.0); Lymphocytes % 0.6 % (21.3-54.2); Mean Corpuscular HGB Conc 32.5 GM/DL (32-36); Mean Corpuscular Volume 90.6 FL (87-102); Monocytes % 4.5 % (1.7-12.7); NRBC # 0.02 10*3/uL; Neutrophils % 87.4 % (38.7-73.9); Red Blood Count 2.78 MC/CUMM (3.8-5.5); Red Cell Distribution Width 17.4 % (9.3-17.3); White Blood Count 19.5 T/CUMM (4-12)
[2021-08-10 03:17] LABS: ABG Base Excess -6.2 MMOL/L (-2.5-2.5); ABG HCO3 19.3 MMOL/L (20-26); ABG Oxygen Saturation 98.8 % (95-100); ABG PCO2 52.9 MM HG (35-48); ABG PH 7.219 (7.35-7.45); ABG TCO2 20.5 MMOL/L (23-27)
[2021-08-10 03:19] LABS: Platelet Count 22 T/CUMM (130-400)
[2021-08-10 03:38] LABS: Calcium 7.6 MG/DL (8.5-10.1); Osmolality,Calculated 342.3 MOS/KG (273-304); Potassium 5.4 MMOL/L (3.5-5.1)
[2021-08-10 03:47] LABS: Band Neutrophils 1 % (0-10); Hypochromia 1+; Lymphocytes 2 % (20-55); Microcytosis 1+; Platelet Estimate Decreased; Segmented Neutrophils 90 % (50-85); Total Cells Counted 100
[2021-08-10] MEDS: INSULIN REGULAR 100 UNIT/ML SUBCUT SCH ×3 (05:01→18:05)
[2021-08-10] MEDS ORDERED: MORPHINE 4 MG/1 ML VIAL IV PRN (09:05)
[2021-08-10] MEDS: ASCORBIC ACID 500 MG TABLET PO SCH (09:16)
[2021-08-10] MEDS: ZINC GLUCONATE 50 MG TABLET PO SCH (09:16)
[2021-08-10] MEDS: SODIUM BICARBONATE 650 MG TABLET PO SCH ×2 (09:16→20:38)
[2021-08-10] MEDS: CHOLECALCIFEROL 1,000 UNIT TABLET PO SCH (09:16)
[2021-08-10] MEDS: MYCOPHENOLATE MOFETIL 250 MG CAPSULE PO SCH ×2 (09:16→20:37)
[2021-08-10] MEDS: methylPREDNISolone SOD SUC 40 MG/1 ML VIAL IV SCH ×2 (09:16→15:14)
[2021-08-10] MEDS: SODIUM ZIRCONIUM CYCLOSILICATE 10 GM PACK PO SCH (09:16)
[2021-08-10] MEDS: MICAFUNGIN 100 MG in SODIUM CHLORIDE 0.9% 100 ML IV SCH (11:26)
[2021-08-10] MEDS: MORPHINE 4 MG/1 ML VIAL IV PRN ×8 (11:26→22:58)
[2021-08-10] MEDS: LORazepam 2 MG/1 ML VIAL IV PRN ×8 (11:26→22:58)
[2021-08-10] MEDS: FAMOTIDINE 20 MG/2 ML VIAL IV SCH (20:35)
[2021-08-11] MEDS: INSULIN REGULAR 100 UNIT/ML SUBCUT SCH ×3 (00:37→12:34)
[2021-08-11] MEDS: methylPREDNISolone SOD SUC 40 MG/1 ML VIAL IV SCH ×2 (00:37→10:26)
[2021-08-11] MEDS: METOCLOPRAMIDE 10 MG/2 ML VIAL IV SCH ×3 (01:25→14:28)
[2021-08-11] MEDS: LORazepam 2 MG/1 ML VIAL IV PRN ×6 (01:27→12:33)
[2021-08-11] MEDS: MORPHINE 4 MG/1 ML VIAL IV PRN ×6 (01:27→12:34)
[2021-08-11] MEDS: MYCOPHENOLATE MOFETIL 250 MG CAPSULE PO SCH (10:26)
[2021-08-11] MEDS: SODIUM BICARBONATE 650 MG TABLET PO SCH (10:26)
[2021-08-11] MEDS: ZINC GLUCONATE 50 MG TABLET PO SCH (10:26)
[2021-08-11] MEDS: SODIUM ZIRCONIUM CYCLOSILICATE 10 GM PACK PO SCH (10:26)
[2021-08-11] MEDS: MICAFUNGIN 100 MG in SODIUM CHLORIDE 0.9% 100 ML IV SCH (12:34)
== END 2021-08-11 13:54 | disposition expired | DRG 720 ==
LOC: N.ED 12:06 → SUATTDRO 14:36 → N.CC 14:36
PROVIDERS: ADMIT Family Medicine; ATTEND Family Medicine